=== PATIENT | female | born 1955 | race Caucasian/White ===

== ENCOUNTER 2016-11-12 08:50 | Inpatient (IN) | payer BC, OTHER ==
[2016-11-12] MEDS ORDERED: SODIUM CHLORIDE 1,000 ML IV ONE (09:14)
[2016-11-12] MEDS ORDERED: ONDANSETRON 4 MG/2 ML VIAL IVPB ONE (09:14)
--- NOTE | 2016-11-12 09:22 | PDOC ---
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 Pt states that she initially started to experience a productive cough with green sputum, which is dry now and gets worse on exertion. She reports experiencing multiple episodes of vomiting and watery diarrhea for 24 hours, but denies abdominal pain. She states that she is not able to keep any food down. She also reports subjective fever, chills, and SOB, but denies any chest pain. She denies any leg swelling and hemoptysis. No recent travel or known sick contacts. Flu shot (+) Sick contact (-) PSH:renal transplant 1989 and 2005 in [facility]" PCP: Dr. Brenda Lynch [phone] Transplant team: Dr. Estrada Tierney [phone] <Haley Olguin - Last Filed: 11/12/16 10:57> <Hernan Lerma - Last Filed: 11/12/16 11:22> - General Chief Complaint: Vomiting/Diarrhea Stated Complaint: DIARRHEA,VOMITING,LOW BP&OXYGEN SATURATION Time Seen by Provider: 11/12/16 09:12 Past History <Haley Olguin - Last Filed: 11/12/16 10:57> - Past Medical History Dialysis: Yes (NOT ANYMORE,RENAL TRANSPLANT-1989) Other medical history: AUTO IMMUNE DISEASE - Psycho/Social/Smoking Cessation Hx Suicidal Ideation: No Smoking History: Never smoked <Hernan Lerma - Last Filed: 11/12/16 11:22> - Past Medical History Allergies/Adverse Reactions: Allergies Allergy/AdvReac Type Severity Reaction Status Date / Time No Known Allergies Allergy Verified 11/12/16 08:54 Home Medications: Ambulatory Orders Allopurinol [Zyloprim -] 100 mg PO DAILY 11/12/16 Calcium Carbonate [Calcium] 500 mg PO BID 11/12/16 Pravastatin Sodium [Pravachol (Nf)] 40 mg PO HS 11/12/16 Prednisone 5 mg PO DAILY 11/12/16 Review of Systems - Review of Systems Able to Perform ROS?: Yes Comments:: 11/12/16 10:58 CONSTITUTIONAL: Yes: fever, chills No reported: Diaphoresis, Generalized Weakness, Malaise, Loss of Appetite HEENT: No reported: Rhinorrhea, Nasal Congestion, Throat Pain, Throat Swelling, Difficulty Swallowing, Mouth Swelling, Ear Pain, Eye Pain, Visual Changes CARDIOVASCULAR: No reported: Chest Pain, Syncope, Palpitations, Irregular Heart Rate, Lightheadedness, Peripheral Edema RESPIRATORY: Yes: cough, SOB No reported: Orthopnea, Wheezing, Stridor, Hemoptysis GASTROINTESTINAL: Yes: nausea, vomiting, diarrhea No reported: Abdominal pain, Abdominal Distension, Constipation, Melena, Hematochezia GENITOURINARY: No reported: Dysuria, Frequency, Urgency, Hesitancy, Flank Pain, Genital Pain MUSCULOSKELETAL: No reported: Myalgia, Arthralgia, Joint Swelling, Back pain, Neck Pain SKIN: No reported: Rash, Itching, Pallor HEMEATOLOGIC/IMMUNOLOGIC: No reported: Easy Bleeding, Easy Bruising, Lymphadenopathy, Frequent infections ENDOCRINE: No reported: Unexplained Weight Gain, Unexplained Weight Loss, Heat Intolerance , Cold Intolerance NEUROLOGIC: No reported: Headache, Focal Weakness, Paresthesias, Vertigo, Lightheadedness, Unsteady Gait, Seizure, Mental Status Changes, Incontinence PSYCHIATRIC: No reported: Anxiety, Depression All Other Systems: Reviewed and Negative <Haley Olguin - Last Filed: 11/12/16 10:57> *Physical Exam - Vital Signs Last Vital Signs Temp Pulse Resp BP Pulse Ox 97.4 F L 101 H 26 H 97/71 95 11/12/16 08:54 11/12/16 10:05 11/12/16 10:40 11/12/16 10:40 11/12/16 10:40 - Physical Exam Comments: 11/12/16 10:58 GENERAL: The patient is awake, alert, and fully oriented, Nontoxic - in no acute distress. HEAD: Normocephalic, atraumatic. EYES: extraocular movements intact, sclera anicteric, conjunctiva clear. ENT: +dry mucous membrane. Normal voice, NECK: Normal range of motion, supple LUNGS:+scant crackles at left base. Breath sounds equal, clear to auscultation bilaterally. No wheezes, no rhonchi, no rales. HEART: Regular rate and rhythm, without murmur, rub or gallop. ABDOMEN: Soft, nontender, normoactive bowel sounds. No guarding, no rebound.No CVA tenderness EXTREMITIES: Normal range of motion, no edema. No clubbing or cyanosis. No cords, erythema, or tenderness. NEUROLOGICAL: No facial assymetry, Normal speech, PSYCH: Normal mood, normal affect. SKIN: Warm, Dry, normal turgor, <Haley Olguin - Last Filed: 11/12/16 10:57> - Vital Signs Last Vital Signs Temp Pulse Resp BP Pulse Ox 97.4 F L 113 H 16 94/54 92 L 11/12/16 08:54 11/12/16 08:54 11/12/16 08:54 11/12/16 08:54 11/12/16 08:54 <Hernan Lerma - Last Filed: 11/12/16 11:22> Heart Score/ECG Review - ECG Impressions Comment:: 11/12/16 11:22 Twelve-lead EKG was performed and reviewed by me. There is normal sinus rhythm with a rate of 105 The axis is normal. The intervals are normal. There is normal R wave progression nonspecific ST wave changes Impression: sinus tachcyardia <Hernan Lerma - Last Filed: 11/12/16 11:22> ED Treatment Course - LABORATORY CBC & Chemistry Diagram: 11/12/16 09:30 11/12/16 09:30 - ADDITIONAL ORDERS Additional order review: Laboratory Results 11/12/16 11/12/16 09:30 09:30 Sodium 134 L Potassium 4.0 Chloride 98 Carbon Dioxide 19 L Anion Gap 17 H BUN 33 H Creatinine 2.7 H Creat Clearance w eGFR 17.86 Random Glucose 112 H Calcium 8.8 Magnesium 1.4 L Total Bilirubin 1.5 H AST 61 H ALT 72 Alkaline Phosphatase 96 Total Protein 6.9 Albumin 3.4 11/12/16 09:30 Influenza Types A,B Antigen (ALEX) - Final Nasopharyngeal Swab - Final 11/12/16 09:30 RBC 4.69 MCV 89.7 MCHC 32.7 RDW 14.8 MPV 8.6 Neutrophils % 91.9 H Lymphocytes % 5.9 L Monocytes % 2.1 L Eosinophils % 0.0 Basophils % 0.1 - Medications Given in the ED: ED Medications Discontinued Medications Generic Name Dose Route Start Last Admin Trade Name Ana Cristina PRN Reason Stop Dose Admin Sodium Chloride 1,000 mls @ 1,000 mls/hr 11/12/16 09:14 11/12/16 09:36 Normal Saline - IV 11/12/16 10:13 1,000 mls/hr .Q1H ONE Administration Ondansetron HCl 4 mg 11/12/16 09:14 11/12/16 09:47 Zofran Injection IVPB 11/12/16 09:15 Not Given ONCE ONE <Haley Olguin - Last Filed: 11/12/16 10:57> - LABORATORY CBC & Chemistry Diagram: 11/12/16 09:30 11/12/16 09:30 - RADIOLOGY Radiology Studies Ordered: Category Date Time Status CHEST X-RAY PORTABLE* [RAD] Stat Radiology 11/12/16 09:14 Ordered <Hernan Lerma - Last Filed: 11/12/16 11:22> Medical Decision Making - Medical Decision Making 11/12/16 09:40 61y 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 On exam pt apepars dry. her vitals noted for tachcyardia, mildly hypotensive, hypoxic to 92%, scant rales on L base. suspect hypotension secondary to dehydration will give fluids also consider possible adrenal crsis as pt has been on steroids (5mg prednisone daily, last dose 2 days ago) - will consider stress dose steroids if pt bp not responding to fluids pt also placed on 2l NC 11/12/16 10:42 The patients CXR suggestive of a LLL infiltrate/pna labs reviewed noted for leukocyotsis and left shift Cr elevated at 2.7 with BUN of 33 - will hydrate pts BP still on the low side - will give another L of NS, if persistently hypotensive will give her dose of steroids will admit for further management of gamaliel, pna, hypoxia 11/12/16 11:20 no significatn improvemnt of BP with 2L of NS. still borderline bp. will give dose of dexamethasone 4mg for possible adrenal crisis case dw CHASSIS INSPECTOR Luann, agreed with management will admit for further management stable for med/surg Case discussed in detail with admitting physician including history, physical exam and ancillary studies. Admitting physician has assumed care for the patient, will follow all pending diagnostics and will complete the evaluation and treatment. <Hernan Lerma - Last Filed: 11/12/16 11:22> *DC/Admit/Observation/Transfer - Attestations Scribe Attestion: 11/12/16 10:5 Documentation prepared by Haley Olguin, acting as medical billing manager for Hernan Lerma MD. <Haley Olguin - Last Filed: 11/12/16 10:57> - Discharge Dispostion Admit: Yes <Hernan Lerma - Last Filed: 11/12/16 11:22> Diagnosis at time of Disposition: GAMALIEL (acute kidney injury), Dehydration Pneumonia Qualifiers: Pneumonia type: due to unspecified organism Laterality: left Lung location: lower lobe of lung Qualified Code(s): J18.9 - Pneumonia, unspecified organism - Discharge Dispostion Condition at time of disposition: Guarded - Referrals Referrals: STAFF,NOT ON [Primary Care Provider] -
[2016-11-12 10:22] LABS: BASOPHIL 0.1 % (0-2.0); MCH 29.3 pg (25.7-33.7); MCHC 32.7 g/dl (32.0-36.0); MEAN CELL VOLUME 89.7 fl (80-96); MEAN PLT VOLUME 8.6 fl (7.5-11.1); NEUTROPHILS 91.9 % (42.8-82.8); PLATELET COUNT 99 K/MM3 (134-434); RDW 14.8 % (11.6-15.6); WHITE BLOOD COUNT 13.6 K/mm3 (4.0-10.0)
[2016-11-12 10:31] LABS: ALBUMIN 3.4 g/dl (3.4-5.0); BILIRUBIN,TOTAL 1.5 mg/dL (0.2-1.0); CALCIUM 8.8 mg/dL (8.5-10.1); CREATININE 2.7 mg/dL (0.55-1.02); TOT PROT 6.9 g/dl (6.4-8.2)
[2016-11-12] MEDS ORDERED: AZITHROMYCIN IVPB 500 MG in DEXTROSE 5%-WATER - 250 ML IVPB ONE (10:32)
[2016-11-12] MEDS ORDERED: CEFTRIAXONE 1 GM in DEXTROSE 5%-WATER - 100 ML IVPB ONE (10:33)
[2016-11-12] MEDS ORDERED: SODIUM CHLORIDE 500 ML IV STA ×2 (10:51→12:05)
--- NOTE | 2016-11-12 11:03 | HP ---
CHIEF COMPLAINT: Cough PCP: Dr. Brenda Lynch [phone] Transplant: Estrada Tierney [phone] HISTORY OF PRESENT ILLNESS: This is a 61 year old female with a history of Gregoria's granulomatosis s/p renal transplant 1989 and 2005 at [place] who presents to the ED today complaining of four days of cough productive of green sputum followed by two days of numerous episodes of black diarrhea and one episode of vomiting. She reports chills two days ago but did not check her temperature. She has been unable to take her medications for two days because of nausea. She has not been able to take food or fluids either. 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 [place] Smoking: None Alcohol: Occasional Allergies No Known Allergies Allergy (Verified 11/12/16 08:54) HOME MEDICATIONS: Home Medications Medication Instructions Recorded Allopurinol [Zyloprim -] 100 mg PO DAILY 11/12/16 Calcium Carbonate [Calcium] 500 mg PO BID 11/12/16 Pravastatin Sodium [Pravachol (Nf)] 40 mg PO HS 11/12/16 Prednisone 5 mg PO DAILY 11/12/16 REVIEW OF SYSTEMS CONSTITUTIONAL: Chills, generalized weakness HEENT: Absent: rhinorrhea, nasal congestion, throat pain, throat swelling, difficulty swallowing, mouth swelling, ear pain, eye pain, visual changes CARDIOVASCULAR: Dizziness when standing Absent: chest pain, syncope, palpitations, irregular heart rate, peripheral edema RESPIRATORY: Cough productive of green sputum, shortness of breath (resolved) GASTROINTESTINAL: Nausea, vomiting x 1, continuous "black" diarrhea Absent: abdominal pain, abdominal distension, nausea, vomiting, diarrhea, constipation, melena, hematochezia GENITOURINARY: Absent: dysuria, frequency, urgency, hesitancy, hematuria, flank pain, genital pain MUSCULOSKELETAL: Absent: myalgia, arthralgia, joint swelling, back pain, neck pain SKIN: Absent: rash, itching, pallor HEMATOLOGIC/IMMUNOLOGIC: Absent: easy bleeding, easy bruising, lymphadenopathy, frequent infections ENDOCRINE: Absent: unexplained weight gain, unexplained weight loss, heat intolerance, cold intolerance NEUROLOGIC: Absent: headache, focal weakness or paresthesias, dizziness, unsteady gait, seizure, mental status changes, bladder or bowel incontinence PSYCHIATRIC: Absent: anxiety, depression, suicidal or homicidal ideation, hallucinations. PHYSICAL EXAMINATION Vital Signs - 24 hr 11/12/16 11/12/16 11/12/16 08:54 09:41 10:05 Temperature 97.4 F L Pulse Rate 113 H Pulse Rate [ 103 H 101 H Apical] Respiratory 16 24 24 Rate Blood Pressure 94/54 Blood Pressure 86/65 85/65 [Left Arm] O2 Sat by Pulse 92 L 93 L 94 L Oximetry (%) 11/12/16 10:40 Temperature Pulse Rate Pulse Rate [ Apical] Respiratory 26 H Rate Blood Pressure Blood Pressure 97/71 [Left Arm] O2 Sat by Pulse 95 Oximetry (%) GENERAL: Awake, alert, and fully oriented. Appears weak. HEAD: Normal with no signs of trauma. EYES: Pupils equal, round and reactive to light, extraocular movements intact, sclera anicteric, conjunctiva clear. No lid lag. Mucous membranes very dry. EARS, NOSE, THROAT: Ears normal, nares patent, oropharynx clear without exudates. Moist mucous membranes. NECK: Normal range of motion, supple without lymphadenopathy, JVD, or masses. LUNGS:Diminished left base. No wheezes or crackles. No accessory muscle use. HEART: Regular rate and rhythm, normal S1 and S2 without murmur, rub or gallop. ABDOMEN: Soft, nontender, not distended, normoactive bowel sounds, no guarding, no rebound, no masses. No hepatomegaly or splenomegaly. MUSCULOSKELETAL: Normal range of motion at all joints. No bony deformities or tenderness. No CVA tenderness. UPPER EXTREMITIES: 2+ pulses, warm, well-perfused. No cyanosis. No clubbing. Cap refill <2 seconds. No peripheral edema. LOWER EXTREMITIES: 2+ pulses, warm, well-perfused. No calf tenderness. No peripheral edema. NEUROLOGICAL: Cranial nerves II-XII intact. Normal speech. PSYCHIATRIC: Cooperative. Good eye contact. Appropriate mood and affect. SKIN: Warm, very dry, no rashes or lesions noted. Laboratory Results - last 24 hr 11/12/16 11/12/16 11/12/16 09:30 09:30 09:30 WBC 13.6 H RBC 4.69 Hgb 13.7 Hct 42.1 MCV 89.7 MCHC 32.7 RDW 14.8 Plt Count 99 L MPV 8.6 Neutrophils % 91.9 H Lymphocytes % 5.9 L Monocytes % 2.1 L Eosinophils % 0.0 Basophils % 0.1 Sodium 134 L Potassium 4.0 Chloride 98 Carbon Dioxide 19 L Anion Gap 17 H BUN 33 H Creatinine 2.7 H Creat Clearance w eGFR 17.86 Random Glucose 112 H Calcium 8.8 Magnesium 1.4 L Total Bilirubin 1.5 H AST 61 H ALT 72 Alkaline Phosphatase 96 Total Protein 6.9 Albumin 3.4 ASSESSMENT/PLAN: 61 year old renal transplant patient with JAMILA in the setting of pneumonia/sepsis and diarrhea/hypovolemia. Problem List - Problem (1) JAMILA (acute kidney injury) Assessment/Plan: -Patient states her baseline creatinine is 1.3 -Suspect hypovolemia secondary to diarrhea as well as some component of sepsis -Received 3L NS in ED, will continue at 100 mLs/hr; low bicarb noted- need to monitor for worsening acidosis with large volumes of saline, however cannot receive LR with Ceftriaxone -Attempted to reach housekeeping coordinator at number listed in ED not and different number found on [employer]; so far no response -Nephrology evaluation requested Code(s): N17.9 - ACUTE KIDNEY FAILURE, UNSPECIFIED (2) Dehydration Assessment/Plan: -Hydration as above Code(s): E86.0 - DEHYDRATION (3) Pneumonia Assessment/Plan: -Community-acquired -Continue Ceftriaxone/Azithromycin -Follow up urine antigens and blood cultures -Repeat lactic acid now -Tylenol as needed for fever Code(s): J18.9 - PNEUMONIA, UNSPECIFIED ORGANISM Qualifiers: Pneumonia type: due to unspecified organism Laterality: left Lung location: lower lobe of lung Qualified Code(s): J18.9 - Pneumonia, unspecified organism (4) Diarrhea Assessment/Plan: -No recent hospitalizations or antibiotic use -Send stool for occult blood, c diff, and stool culture -Hydration as above Code(s): R19.7 - DIARRHEA, UNSPECIFIED (5) Hypomagnesemia Assessment/Plan: -Mg 1.4; received 2g IVPB in ED -Replete with additional 2g now -Follow Code(s): E83.42 - HYPOMAGNESEMIA (6) Renal transplant recipient Assessment/Plan: -Continue mycophenolate/tacrolimus and prednisone -Received dexamethasone 4mg IVP in ED out of concern for adrenal crisis Code(s): Z94.0 - KIDNEY TRANSPLANT STATUS (7) DVT prophylaxis Assessment/Plan: -Heparin sq 5000 units tid -Early ambulation Code(s): [id number] - Visit type - Emergency Visit Emergency Visit: Yes ED Registration Date: 11/12/16 Care time: The patient presented to the Emergency Department on the above date and was hospitalized for further evaluation of their emergent condition. - New Patient This patient is new to me today: Yes Date on this admission: 11/12/16 - Critical Care Critical Care patient: No
[2016-11-12] MEDS ORDERED: CEFTRIAXONE 50 ML ONE (11:13)
[2016-11-12] MEDS ORDERED: AZITHROMYCIN IVPB 250 ML IVPB ONE (11:13)
[2016-11-12] MEDS ORDERED: DEXAMETHASONE SOD PHOSPHATE 4 MG/1 ML VIAL IVPUSH ONE (11:17)
[2016-11-12] MEDS ORDERED: DEXAMETHASONE SOD PHOSPHATE 4 MG/1 ML VIAL ONE (11:32)
[2016-11-12] MEDS ORDERED: MAGNESIUM SULF 50% (8.12 MEQ/2 ML-1 GM VIAL) IVPB ONE ×2 (11:47→17:30)
[2016-11-12] MEDS ORDERED: MAGNESIUM SULF 50% (8.12 MEQ/2 ML-1 GM VIAL) ONE (11:53)
[2016-11-12] MEDS ORDERED: ONDANSETRON 4 MG/2 ML VIAL IVPB PRN (12:21)
[2016-11-12] MEDS ORDERED: LACTATED RINGERS SOLUTION 1,000 ML IV SCH (12:30)
[2016-11-12 12:41] VITALS: BMI 22.2
[2016-11-12 12:50] LABS: URINE APPEARANCE SLCLOUDY; URINE BILIRUBIN NEGATIVE (NEGATIVE); URINE BLOOD NEGATIVE (NEGATIVE); URINE COLOR AMBER; URINE GLUCOSE (UA) NEGATIVE (NEGATIVE); URINE KETONE NEGATIVE (NEGATIVE); URINE LEUK ESTERASE NEGATIVE (NEGATIVE); URINE NITRITE NEGATIVE (NEGATIVE); URINE UROBILINOGEN NEGATIVE E.U./dl (0.2-1.0)
[2016-11-12 13:10] LABS: URINE PROTEIN 1+ (NEGATIVE)
[2016-11-12 13:11] LABS: URINE BACTERIA RARE /hpf (NONE SEEN); URINE HYALINE CAST 14 /lpf; URINE MUCUS RARE; URINE RBC <1 /hpf (0-3); URINE WBC 4 /hpf (3-5)
[2016-11-12] MEDS: SODIUM CHLORIDE 1,000 ML IV SCH ×2 (14:42→21:30)
[2016-11-12] MEDS: HEPARIN NA (PORCINE) 5,000 UNITS/ML 1ML VIAL SQ SCH ×2 (14:42→22:01)
[2016-11-12] MEDS: ACETAMINOPHEN 325 MG TABLET (FP) PO PRN ×2 (16:46→22:12)
--- NOTE | 2016-11-12 17:36 | CONSULT ---
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 She complains of a productive cough. She also had several days of diarrhea and vomiting. She was found to have a PNA on cxr. I was called to evaluate her for CKD and JAMILA. She developed renal failure in the late s. She was on PD briefly then on HD for about 5 months. Her father donated a kidney in 1989. She had that kidney until about 2005 where she went into failure. At that time she was given a second kidney from a friend. She was not on dialysis between the kidney transplants. She says she has a baseline creatinine of about 1.3. She is on prograf, mycophenylate and prednisone. She feels better today after recieving fluids. She was found to be in acute renal failure in the hospital. - History Source History Provided By: Patient - Past Medical History Cardio/Vascular: Yes: Hyperlipdemia Pulmonary: Yes: Other (wegners) Renal/: Yes: Renal Inusuff, Other (kidney transplant) ...: No Rheumatology: Yes: Gout - Past Surgical History Past Surgical History: Yes: Kidney Transplant - Alcohol/Substance Use Hx Alcohol Use: No - Smoking History Smoking history: Never smoked Home Medications - Allergies Allergies/Adverse Reactions: Allergies Allergy/AdvReac Type Severity Reaction Status Date / Time No Known Allergies Allergy Verified 11/12/16 08:54 - Home Medications Home Medications: Ambulatory Orders Allopurinol [Zyloprim -] 100 mg PO DAILY 11/12/16 Calcium Carbonate [Calcium] 500 mg PO BID 11/12/16 Mycophenolate Mofetil [Cellcept Suspension -] 100 mg PO HS 11/12/16 Mycophenolate Mofetil [Cellcept] 200 mg PO DAILY 11/12/16 Pravastatin Sodium [Pravachol (Nf)] 40 mg PO HS 11/12/16 Prednisone 5 mg PO DAILY 11/12/16 Tacrolimus 1 mg PO DAILY 11/12/16 Tacrolimus 2 mg PO HS 11/12/16 Family Disease History - Family Disease History Family History: Denies Review of Systems - Review of Systems Constitutional: reports: Chills, Fever Eyes: reports: No Symptoms HENT: reports: No Symptoms Neck: reports: No Symptoms Cardiovascular: reports: Shortness of Breath. denies: Edema Respiratory: reports: Cough, SOB on Exertion Gastrointestinal: reports: Diarrhea Genitourinary: reports: No Symptoms Musculoskeletal: reports: No Symptoms Integumentary: reports: No Symptoms Neurological: reports: No Symptoms Endocrine: reports: No Symptoms Hematology/Lymphatic: reports: No Symptoms Psychiatric: reports: No Symptoms Physical Exam Vital Signs: Vital Signs Temperature 98.9 F 11/12/16 13:05 Pulse Rate 86 11/12/16 13:05 Respiratory Rate 22 11/12/16 13:05 Blood Pressure 96/64 11/12/16 13:05 O2 Sat by Pulse Oximetry (%) 95 11/12/16 12:30 Constitutional: Yes: Calm Eyes: Yes: Conjunctiva Clear HENT: Yes: Atraumatic Neck: Yes: Supple Cardiovascular: Yes: S1, S2 Respiratory: Yes: On Nasal O2, Rhonchi, SOB on Exertion Gastrointestinal: Yes: Normal Bowel Sounds, Soft Renal/: Yes: Other (right lower quad graft soft and non tender, neg bruit) Musculoskeletal: Yes: WNL Extremities: Yes: WNL Edema: No Neurological: Yes: Oriented Psychiatric: Yes: Oriented Labs: Laboratory Tests 11/12/16 11/12/16 11/12/16 09:30 09:30 09:30 WBC 13.6 H Hgb 13.7 Plt Count 99 L Sodium 134 L Potassium 4.0 Chloride 98 Carbon Dioxide 19 L Anion Gap 17 H BUN 33 H Creatinine 2.7 H Creat Clearance w eGFR 17.86 Random Glucose 112 H Lactic Acid Magnesium 1.4 L Total Bilirubin 1.5 H AST 61 H ALT 72 Alkaline Phosphatase 96 Total Protein 6.9 Albumin 3.4 Urine Color Urine Appearance Urine pH Ur Specific [place] Urine Protein Urine Glucose (UA) Urine Ketones Urine Blood Urine Nitrite Urine Bilirubin Urine Urobilinogen Ur Leukocyte Esterase Urine RBC Urine WBC Stool Occult Blood 11/12/16 11/12/16 11/12/16 09:37 10:49 13:10 WBC Hgb Plt Count Sodium Potassium Chloride Carbon Dioxide Anion Gap BUN Creatinine Creat Clearance w eGFR Random Glucose Lactic Acid 2.152 H* 2.041 H* Magnesium Total Bilirubin AST ALT Alkaline Phosphatase Total Protein Albumin Urine Color [place] Urine Appearance Slcloudy Urine pH 5.0 Ur Specific [place] 1.023 Urine Protein 1+ H Urine Glucose (UA) Negative Urine Ketones Negative Urine Blood Negative Urine Nitrite Negative Urine Bilirubin Negative Urine Urobilinogen Negative Ur Leukocyte Esterase Negative Urine RBC <1 Urine WBC 4 Stool Occult Blood 11/12/16 16:15 WBC Hgb Plt Count Sodium Potassium Chloride Carbon Dioxide Anion Gap BUN Creatinine Creat Clearance w eGFR Random Glucose Lactic Acid Magnesium Total Bilirubin AST ALT Alkaline Phosphatase Total Protein Albumin Urine Color Urine Appearance Urine pH Ur Specific [place] Urine Protein Urine Glucose (UA) Urine Ketones Urine Blood Urine Nitrite Urine Bilirubin Urine Urobilinogen Ur Leukocyte Esterase Urine RBC Urine WBC Stool Occult Blood Negative Imaging - Results Chest X-ray: Report Reviewed (left lower lobe PNA with effusion) Problem List - Problems (1) JAMILA (acute kidney injury) Code(s): N17.9 - ACUTE KIDNEY FAILURE, UNSPECIFIED (2) Dehydration Code(s): E86.0 - DEHYDRATION (3) Diarrhea Code(s): R19.7 - DIARRHEA, UNSPECIFIED (4) Hypomagnesemia Code(s): E83.42 - HYPOMAGNESEMIA (5) Pneumonia Code(s): J18.9 - PNEUMONIA, UNSPECIFIED ORGANISM Qualifiers: Pneumonia type: due to unspecified organism Laterality: left Lung location: lower lobe of lung Qualified Code(s): J18.9 - Pneumonia, unspecified organism (6) Renal transplant recipient Code(s): Z94.0 - KIDNEY TRANSPLANT STATUS (7) Gregoria's granulomatosis with renal involvement Code(s): M31.31 - GREGORIA'S GRANULOMATOSIS WITH RENAL INVOLVEMENT (8) Sepsis Code(s): A41.9 - SEPSIS, UNSPECIFIED ORGANISM Assessment/Plan Current Medications Generic Name Dose Route Start Last Admin Trade Name Freq PRN Reason Stop Dose Admin Acetaminophen 650 mg 11/12/16 12:21 11/12/16 16:46 Tylenol - PO 650 mg Q4H PRN Administration FEVER OR PAIN Allopurinol 100 mg 11/13/16 10:00 Zyloprim - PO DAILY ADRIANNA Atorvastatin Calcium 10 mg 11/12/16 22:00 Lipitor - PO HS ADRIANNA Calcium Carbonate 500 mg 11/12/16 22:00 Os-Jalen 500mg - PO BID ADRIANNA Heparin Sodium (Porcine) 5,000 unit 11/12/16 14:00 11/12/16 14:42 Heparin - SQ 5,000 unit TID ADRIANNA Administration Azithromycin 250 mg/ Dextrose 250 mls @ 250 mls/hr 11/13/16 10:00 IVPB DAILY ADRIANNA Ceftriaxone Sodium 50 mls @ 100 mls/hr 11/13/16 10:00 Rocephin 1gm Ivpb (Pre-Docked) IVPB DAILY ADRIANNA Sodium Chloride 1,000 mls @ 100 mls/hr 11/12/16 13:15 11/12/16 14:42 Normal Saline - IV 100 mls/hr ASDIR ADRIANNA Administration Mycophenolate Mofetil 500 mg 11/12/16 22:00 Cellcept - PO HS ADRIANNA Mycophenolate Mofetil 1,000 mg 11/13/16 10:00 Cellcept - PO DAILY ADRIANNA Non-Formulary Medication 2 mg 11/12/16 22:00 Tacrolimus [Tacrolimus] PO HS ADRIANNA Non-Formulary Medication 1 mg 11/13/16 10:00 Tacrolimus [Tacrolimus] PO DAILY ADRIANNA Ondansetron HCl 4 mg 11/12/16 12:21 Zofran Injection IVPB Q6H PRN NAUSEA Prednisone 5 mg 11/13/16 10:00 Deltasone - PO DAILY ADRIANNA Impression 1. CKD 2. s/p kidney transplant x2 3. hx of vasculitis 4. PNA 5. diarrhea/vomiting 6. sepsis 7. gout 8. hyperlipidemia Plan - agree with hydration - repeat bmp to evaluate for responce - renal transplant ultrasound - will check urine lytes - resume prograf and mycophenylate, pt will take own meds, nurse to dispence - check prograf level - agree with starting antibiotics - recommend ID evaluation - blood pressure and pulse are improving - will follow Dr Negrete
[2016-11-12 20:12] LABS: CALCIUM 8.1 mg/dL (8.5-10.1)
--- NOTE | 2016-11-12 20:49 | PN ---
Progress Note (short form) - Note Progress Note: Renal Follow Up Laboratory Tests 11/12/16 19:10 Sodium 136 Potassium 3.6 Chloride 106 Carbon Dioxide 17 L Anion Gap 13 BUN 31 H Creatinine 2.0 H D - Pts repeat labs reviewed and her renal function is improving. Will continue to monitor. - cont with hydration - repeat labs in am Dr Negrete Problem List - Problems (1) JAMILA (acute kidney injury) Code(s): N17.9 - ACUTE KIDNEY FAILURE, UNSPECIFIED (2) Dehydration Code(s): E86.0 - DEHYDRATION (3) Diarrhea Code(s): R19.7 - DIARRHEA, UNSPECIFIED (4) Hypomagnesemia Code(s): E83.42 - HYPOMAGNESEMIA (5) Pneumonia Code(s): J18.9 - PNEUMONIA, UNSPECIFIED ORGANISM Qualifiers: Pneumonia type: due to unspecified organism Laterality: left Lung location: lower lobe of lung Qualified Code(s): J18.9 - Pneumonia, unspecified organism (6) Renal transplant recipient Code(s): Z94.0 - KIDNEY TRANSPLANT STATUS (7) Gregoria's granulomatosis with renal involvement Code(s): M31.31 - GREGORIA'S GRANULOMATOSIS WITH RENAL INVOLVEMENT (8) Sepsis Code(s): A41.9 - SEPSIS, UNSPECIFIED ORGANISM
[2016-11-12] MEDS: CALCIUM (OYSTER SHELL) 500 MG TABLET (FP) PO SCH (22:00)
[2016-11-12] MEDS ORDERED: MYCOPHENOLATE MOFETIL 200 MG/ML PO SCH (22:00)
[2016-11-12] MEDS ORDERED: ATORVASTATIN CA 10 MG TABLET (FP) PO SCH (22:00)
[2016-11-12] MEDS: TACROLIMUS 2 MG PO SCH (22:01)
[2016-11-12] MEDS: PRAVASTATIN NA 40 MG TABLET PO SCH (22:01)
[2016-11-12] MEDS: MYCOPHENOLATE MOFETIL 500 MG TABLET PO SCH (22:02)
[2016-11-12 22:18] LABS: CREATININE 1.8 mg/dL (0.55-1.02); MAGNESIUM 3.2 mg/dL (1.8-2.4)
[2016-11-12] MEDS ORDERED: SODIUM CHLORIDE 250 ML IV STA (23:22)
[2016-11-13 00:08] LABS: SODIUM,RANDOM URINE 28 MMOL/L
[2016-11-13 00:09] LABS: CHLORIDE,RANDOM URINE < 10 MMOL/L
[2016-11-13] MEDS: SODIUM CHLORIDE 1,000 ML IV SCH ×3 (06:36→19:11)
[2016-11-13] MEDS: HEPARIN NA (PORCINE) 5,000 UNITS/ML 1ML VIAL SQ SCH ×3 (06:36→22:06)
[2016-11-13 08:10] LABS: MCH 29.2 pg (25.7-33.7); MCHC 32.7 g/dl (32.0-36.0); MEAN CELL VOLUME 89.2 fl (80-96); MEAN PLT VOLUME 9.1 fl (7.5-11.1); NEUTROPHILS 92.6 % (42.8-82.8); PLATELET COUNT 99 K/MM3 (134-434); RDW 14.8 % (11.6-15.6); WHITE BLOOD COUNT 13.3 K/mm3 (4.0-10.0)
[2016-11-13 09:29] LABS: ALBUMIN 2.6 g/dl (3.4-5.0); BILIRUBIN,TOTAL 0.5 mg/dL (0.2-1.0); CALCIUM 8.1 mg/dL (8.5-10.1); CREATININE 1.5 mg/dL (0.55-1.02); MAGNESIUM 2.8 mg/dL (1.8-2.4); TOT PROT 5.8 g/dl (6.4-8.2)
--- NOTE | 2016-11-13 09:53 | PN ---
Physical Exam: SUBJECTIVE: Patient seen and examined oob to chair. OBJECTIVE: Vital Signs Period Temp Pulse Resp BP Sys/Gale Pulse Ox Last 24 Hr 97.8 F-99.1 F 84-94 20-22 89-136/61-94 95-96 GENERAL: The patient is awake, alert, and fully oriented, in no acute distress. HEAD: Normal with no signs of trauma. EYES: PERRL, extraocular movements intact, sclera anicteric, conjunctiva clear. No ptosis. LUNGS: Poor air movement. HEART: Regular rate and rhythm, S1, S2 without murmur, rub or gallop. ABDOMEN: Soft, nontender, nondistended, normoactive bowel sounds, no guarding, no rebound, no hepatosplenomegaly, no masses. EXTREMITIES: 2+ pulses, warm, well-perfused, no edema. NEUROLOGICAL: Cranial nerves II through XII grossly intact. Normal speech, gait not observed. PSYCH: Normal mood, normal affect. SKIN: Warm, dry, normal turgor, no rashes or lesions noted Laboratory Results - last 24 hr 11/12/16 11/12/16 11/12/16 13:10 16:15 19:10 WBC RBC Hgb Hct MCV MCHC RDW Plt Count MPV Neutrophils % Lymphocytes % Monocytes % Eosinophils % Basophils % Sodium 136 Potassium 3.6 Chloride 106 Carbon Dioxide 17 L Anion Gap 13 BUN 31 H Creatinine 2.0 H D Creat Clearance w eGFR Random Glucose 221 H D Lactic Acid 2.041 H* Calcium 8.1 L Magnesium Total Bilirubin AST ALT Alkaline Phosphatase C-Reactive Protein Total Protein Albumin Ur Random Sodium Ur Random Potassium Ur Random Chloride Urine Creatinine Stool Occult Blood Negative 11/12/16 11/12/16 11/12/16 21:00 21:00 22:45 WBC RBC Hgb Hct MCV MCHC RDW Plt Count MPV Neutrophils % Lymphocytes % Monocytes % Eosinophils % Basophils % Sodium 139 Potassium 3.6 Chloride 107 Carbon Dioxide 19 L Anion Gap 13 BUN 29 H Creatinine 1.8 H Creat Clearance w eGFR Random Glucose 186 H Lactic Acid 2.507 H* Calcium 8.0 L Magnesium 3.2 H D Total Bilirubin AST ALT Alkaline Phosphatase C-Reactive Protein Total Protein Albumin Ur Random Sodium 28 Ur Random Potassium 17.9 Ur Random Chloride < 10 Urine Creatinine Stool Occult Blood 11/12/16 11/13/16 11/13/16 22:45 07:00 07:00 WBC 13.3 H RBC 3.92 Hgb 11.4 D Hct 35.0 D MCV 89.2 MCHC 32.7 RDW 14.8 Plt Count 99 L MPV 9.1 Neutrophils % 92.6 H Lymphocytes % 4.2 L D Monocytes % 3.2 L Eosinophils % 0.0 Basophils % 0.0 Sodium 141 Potassium 3.5 Chloride 108 H Carbon Dioxide 18 L Anion Gap 15 BUN 28 H Creatinine 1.5 H Creat Clearance w eGFR 35.19 Random Glucose 124 H D Lactic Acid Calcium 8.1 L Magnesium 2.8 H Total Bilirubin 0.5 D AST 30 D ALT 43 D Alkaline Phosphatase 82 C-Reactive Protein Total Protein 5.8 L Albumin 2.6 L D Ur Random Sodium Ur Random Potassium Ur Random Chloride Urine Creatinine 63.6 Stool Occult Blood 11/13/16 11/13/16 07:00 07:00 WBC RBC Hgb Hct MCV MCHC RDW Plt Count MPV Neutrophils % Lymphocytes % Monocytes % Eosinophils % Basophils % Sodium Potassium Chloride Carbon Dioxide Anion Gap BUN Creatinine Creat Clearance w eGFR Random Glucose Lactic Acid 1.921 Calcium Magnesium Total Bilirubin AST ALT Alkaline Phosphatase C-Reactive Protein 39.5 H Total Protein Albumin Ur Random Sodium Ur Random Potassium Ur Random Chloride Urine Creatinine Stool Occult Blood Active Medications Generic Name Dose Route Start Last Admin Trade Name Freq PRN Reason Stop Dose Admin Acetaminophen 650 mg 11/12/16 12:21 11/12/16 22:12 Tylenol - PO 650 mg Q4H PRN Administration FEVER OR PAIN Allopurinol 100 mg 11/13/16 10:00 Zyloprim - PO DAILY ADRIANNA Calcium Carbonate 500 mg 11/12/16 22:00 11/12/16 22:00 Os-Jalen 500mg - PO 500 mg BID ADRIANNA Administration Heparin Sodium (Porcine) 5,000 unit 11/12/16 14:00 11/13/16 06:36 Heparin - SQ 5,000 unit TID ADRIANNA Administration Azithromycin 250 mg/ Dextrose 250 mls @ 250 mls/hr 11/13/16 10:00 IVPB DAILY ADRIANNA Ceftriaxone Sodium 50 mls @ 100 mls/hr 11/13/16 10:00 Rocephin 1gm Ivpb (Pre-Docked) IVPB DAILY AD[facility]ANNA Sodium Chloride 1,000 mls @ 100 mls/hr 11/12/16 13:15 11/13/16 06:36 Normal Saline - IV 100 mls/hr ASDIR ADRIANNA Administration Mycophenolate Mofetil 500 mg 11/12/16 22:00 11/12/16 22:02 Cellcept - PO 500 mg HS ADRIANNA Administration Mycophenolate Mofetil 1,000 mg 11/13/16 10:00 Cellcept - PO DAILY ADRIANNA Non-Formulary Medication 2 mg 11/12/16 22:00 11/12/16 22:01 Tacrolimus [Tacrolimus] PO 2 mg HS ADRIANNA Administration Non-Formulary Medication 1 mg 11/13/16 10:00 Tacrolimus [Tacrolimus] PO DAILY ADRIANNA Ondansetron HCl 4 mg 11/12/16 12:21 Zofran Injection IVPB Q6H PRN NAUSEA Pravastatin Sodium 40 mg 11/12/16 22:00 11/12/16 22:01 Pravachol PO 40 mg HS ADRIANNA Administration Prednisone 5 mg 11/13/16 10:00 Deltasone - PO DAILY ADRIANNA Microbiology 11/12/16 22:45 Urine For Antigen Detection Legionella Antigen - Final - Negative 11/12/16 22:45 Urine For Antigen Detection Streptococcus pneumoniae Antigen (M - Final) - Negative 11/12/16 09:30 Nasopharyngeal Swab Influenza Types A,B Antigen (ALEX) - Final - Negative 11/12/16 09:30 Nasopharyngeal Swab - Final ASSESSMENT/PLAN 61 year-old woman with a PMH of Gregoria's granulomatosis s/p renal transplant x 2 (1989, 2005 at [place]). Admitted for JAMILA and pneumonia. 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 Full Code. Visit type - Emergency Visit Emergency Visit: Yes ED Registration Date: 11/12/16 Care time: The patient presented to the Emergency Department on the above date and was hospitalized for further evaluation of their emergent condition. - New Patient This patient is new to me today: Yes Date on this admission: 11/16/16 - Critical Care Critical Care patient: No
[2016-11-13] MEDS ORDERED: CEFTRIAXONE 50 ML IVPB SCH (10:00)
[2016-11-13] MEDS ORDERED: MYCOPHENOLATE MOFETIL 200 MG/ML PO SCH (10:00)
[2016-11-13] MEDS: predniSONE 5 MG TABLET (UD) PO SCH (10:27)
[2016-11-13] MEDS: ALLOPURINOL 100 MG TABLET (FP) PO SCH (10:27)
[2016-11-13] MEDS: CALCIUM (OYSTER SHELL) 500 MG TABLET (FP) PO SCH ×2 (10:27→22:06)
[2016-11-13] MEDS: AZITHROMYCIN IVPB 250 MG in DEXTROSE 5%-WATER - 250 ML IVPB SCH (10:28)
[2016-11-13] MEDS: TACROLIMUS 1 MG PO SCH (10:32)
[2016-11-13] MEDS: MYCOPHENOLATE MOFETIL 500 MG TABLET PO SCH ×2 (10:33→22:06)
[2016-11-13] MEDS: ACETAMINOPHEN 325 MG TABLET (FP) PO PRN ×2 (10:45→22:06)
--- NOTE | 2016-11-13 17:38 | CONSULT ---
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 She complains of a productive cough. She also had several days of diarrhea and vomiting. She was found to have a PNA on cxr. patients history is pretty detailed this is her 2nd kidney transplant and she has been doing well ,the first one lasted a long time and now the second on also she is doing well As above patient presented with coung and left lower lobe pneumonia - History Source History Provided By: Patient Limitations to Obtaining History: No Limitations - Past Medical History Cardio/Vascular: Yes: Hyperlipdemia Pulmonary: Yes: Other (wegners) Renal/: Yes: Renal Inusuff, Other (kidney transplant) ...: No Rheumatology: Yes: Gout - Past Surgical History Past Surgical History: Yes: Kidney Transplant - Alcohol/Substance Use Hx Alcohol Use: No - Smoking History Smoking history: Never smoked Home Medications - Allergies Allergies/Adverse Reactions: Allergies Allergy/AdvReac Type Severity Reaction Status Date / Time No Known Allergies Allergy Verified 11/12/16 08:54 - Home Medications Home Medications: Ambulatory Orders Allopurinol [Zyloprim -] 100 mg PO DAILY 11/12/16 Calcium Carbonate [Calcium] 500 mg PO BID 11/12/16 Mycophenolate Mofetil [Cellcept Suspension -] 100 mg PO HS 11/12/16 Mycophenolate Mofetil [Cellcept] 200 mg PO DAILY 11/12/16 Pravastatin Sodium [Pravachol (Nf)] 40 mg PO HS 11/12/16 Prednisone 5 mg PO DAILY 11/12/16 Tacrolimus 1 mg PO DAILY 11/12/16 Tacrolimus 2 mg PO HS 11/12/16 Review of Systems - Review of Systems Constitutional: reports: Fever, Weakness Eyes: reports: No Symptoms HENT: reports: No Symptoms Neck: reports: No Symptoms Cardiovascular: reports: No Symptoms Respiratory: reports: Cough, SOB on Exertion Gastrointestinal: reports: Abdominal Pain, Diarrhea Genitourinary: reports: No Symptoms Musculoskeletal: reports: Muscle Weakness Integumentary: reports: No Symptoms Neurological: reports: No Symptoms Endocrine: reports: No Symptoms Hematology/Lymphatic: reports: No Symptoms Psychiatric: reports: No Symptoms Physical Exam Vital Signs: Vital Signs Temperature 98.1 F 11/13/16 13:11 Pulse Rate 82 11/13/16 13:11 Respiratory Rate 18 11/13/16 13:11 Blood Pressure 120/80 11/13/16 13:11 O2 Sat by Pulse Oximetry (%) 95 11/13/16 09:00 Constitutional: Yes: Well Nourished, Calm, Mild Distress Eyes: Yes: Conjunctiva Clear HENT: Yes: Atraumatic Neck: Yes: Supple, Trachea Midline Cardiovascular: Yes: Regular Rate and Rhythm Respiratory: Yes: Regular, Poor Air Entry, Rhonchi Gastrointestinal: Yes: Normal Bowel Sounds, Soft Musculoskeletal: Yes: WNL Extremities: Yes: WNL Neurological: Yes: Alert, Oriented Psychiatric: Yes: Alert Labs: CBC, BMP 11/13/16 07:00 11/13/16 07:00 Imaging - Results Chest X-ray: Report Reviewed, Image Reviewed Assessment/Plan this patient who is very immunocompromised with 2nd kidney transplant now getting admitted with pneumonia and dirrhoea with being very weak and very less urine output 61 year-old woman with a PMH of Gregoria's granulomatosis s/p renal transplant x 2 (1989, 2005 at [facility]). Admitted for JAMILA and pneumonia. Acute kidney injury Azotemia Lactic acidosis Renal transplant recipient Pneumonia Thrombocytopenia Diarrhea Gregoria's granulomatosis patient needs aggressive hydration and treatment to prevent her from going into renal failure i will also start abx she needs very broad coverage as anything on her cannot be missed because of her status plan will start patient on abx hydration close monitoring of the patient await for all the results close monitoring of urine output
[2016-11-13] MEDS ORDERED: CLINDAMYCIN 300 MG PREMIX IVPB 50 ML IVPB SCH (18:00)
--- NOTE | 2016-11-13 18:31 | PN ---
Progress Note, Physician History of Present Illness: Pt seen and examined at bedside. She is awake and alert. She feels that her breathing is improved. She started to feel better this afternoon. - Current Medication List Current Medications: Active Medications Acetaminophen (Tylenol -) 650 mg PO Q4H PRN PRN Reason: FEVER OR PAIN Last Admin: 11/13/16 10:45 Dose: 650 mg Allopurinol (Zyloprim -) 100 mg PO DAILY [facility] Last Admin: 11/13/16 10:27 Dose: 100 mg Calcium Carbonate (Os-Jalen 500mg -) 500 mg PO BID [facility] Last Admin: 11/13/16 10:27 Dose: 500 mg Heparin Sodium (Porcine) (Heparin -) 5,000 unit SQ TID [facility] Last Admin: 11/13/16 15:23 Dose: Not Given Azithromycin 250 mg/ Dextrose 250 mls @ 250 mls/hr IVPB DAILY [facility] Last Admin: 11/13/16 10:28 Dose: 250 mls/hr Sodium Chloride (Normal Saline -) 1,000 mls @ 100 mls/hr IV ASDIR [facility] Last Admin: 11/13/16 15:36 Dose: Not Given Clindamycin Phosphate (Cleocin 300 Mg Premix Ivpb) 50 mls @ 100 mls/hr IVPB Q8H -IV ADRIANNA Meropenem 1 gm/ Dextrose 250 mls @ 250 mls/hr IVPB BID ADRIANNA Mycophenolate Mofetil (Cellcept -) 500 mg PO HS [facility] Last Admin: 11/12/16 22:02 Dose: 500 mg Mycophenolate Mofetil (Cellcept -) 1,000 mg PO DAILY [facility] Last Admin: 11/13/16 10:33 Dose: 1,000 mg Non-Formulary Medication (Tacrolimus [Tacrolimus]) 2 mg PO HS [facility] Last Admin: 11/12/16 22:01 Dose: 2 mg Non-Formulary Medication (Tacrolimus [Tacrolimus]) 1 mg PO DAILY [facility] Last Admin: 11/13/16 10:32 Dose: 1 mg Ondansetron HCl (Zofran Injection) 4 mg IVPB Q6H PRN PRN Reason: NAUSEA Pravastatin Sodium (Pravachol) 40 mg PO HS [facility] Last Admin: 11/12/16 22:01 Dose: 40 mg Prednisone (Deltasone -) 5 mg PO DAILY [facility] Last Admin: 11/13/16 10:27 Dose: 5 mg - Objective Vital Signs: Vital Signs Temperature 98.1 F 11/13/16 13:11 Pulse Rate 82 11/13/16 13:11 Respiratory Rate 18 11/13/16 13:11 Blood Pressure 120/80 11/13/16 13:11 O2 Sat by Pulse Oximetry (%) 95 11/13/16 09:00 Constitutional: Yes: Calm Eyes: Yes: Conjunctiva Clear HENT: Yes: Atraumatic Neck: Yes: Supple Cardiovascular: Yes: S1, S2 Respiratory: Yes: Rhonchi Gastrointestinal: Yes: Soft Genitourinary: Yes: Other (graft is soft and not tender) Musculoskeletal: Yes: WNL Edema: No Neurological: Yes: Oriented Psychiatric: Yes: Oriented Labs: CBC, BMP 11/13/16 07:00 11/13/16 07:00 - ....Imaging Ultrasound: Report Reviewed Problem List - Problems (1) JAMILA (acute kidney injury) Code(s): N17.9 - ACUTE KIDNEY FAILURE, UNSPECIFIED (2) Dehydration Code(s): E86.0 - DEHYDRATION (3) Diarrhea Code(s): R19.7 - DIARRHEA, UNSPECIFIED (4) Hypomagnesemia Code(s): E83.42 - HYPOMAGNESEMIA (5) Pneumonia Code(s): J18.9 - PNEUMONIA, UNSPECIFIED ORGANISM Qualifiers: Pneumonia type: due to unspecified organism Laterality: left Lung location: lower lobe of lung Qualified Code(s): J18.9 - Pneumonia, unspecified organism (6) Renal transplant recipient Code(s): Z94.0 - KIDNEY TRANSPLANT STATUS (7) Gregoria's granulomatosis with renal involvement Code(s): M31.31 - GREGORIA'S GRANULOMATOSIS WITH RENAL INVOLVEMENT (8) Sepsis Code(s): A41.9 - SEPSIS, UNSPECIFIED ORGANISM Assessment/Plan Current Medications Generic Name Dose Route Start Last Admin Trade Name Freq PRN Reason Stop Dose Admin Acetaminophen 650 mg 11/12/16 12:21 11/13/16 10:45 Tylenol - PO 650 mg Q4H PRN Administration FEVER OR PAIN Allopurinol 100 mg 11/13/16 10:00 11/13/16 10:27 Zyloprim - PO 100 mg DAILY ADRIANNA Administration Calcium Carbonate 500 mg 11/12/16 22:00 11/13/16 10:27 Os-Jalen 500mg - PO 500 mg BID ADRIANNA Administration Heparin Sodium (Porcine) 5,000 unit 11/12/16 14:00 11/13/16 15:23 Heparin - SQ Not Given TID ADRIANNA Azithromycin 250 mg/ Dextrose 250 mls @ 250 mls/hr 11/13/16 10:00 11/13/16 10: 28 IVPB 250 mls/hr DAILY ADRIANNA Administration Sodium Chloride 1,000 mls @ 100 mls/hr 11/12/16 13:15 11/13/16 15:36 Normal Saline - IV Not Given ASDIR ADRIANNA Clindamycin Phosphate 50 mls @ 100 mls/hr 11/13/16 18:00 Cleocin 300 Mg Premix Ivpb IVPB Q8H-IV ADRIANNA Meropenem 1 gm/ Dextrose 250 mls @ 250 mls/hr 11/13/16 18:00 IVPB BID ADRIANNA Mycophenolate Mofetil 500 mg 11/12/16 22:00 11/12/16 22:02 Cellcept - PO 500 mg HS ADRIANNA Administration Mycophenolate Mofetil 1,000 mg 11/13/16 10:00 11/13/16 10:33 Cellcept - PO 1,000 mg DAILY ADRIANNA Administration Non-Formulary Medication 2 mg 11/12/16 22:00 11/12/16 22:01 Tacrolimus [Tacrolimus] PO 2 mg HS ADRIANNA Administration Non-Formulary Medication 1 mg 11/13/16 10:00 11/13/16 10:32 Tacrolimus [Tacrolimus] PO 1 mg DAILY ADRIANNA Administration Ondansetron HCl 4 mg 11/12/16 12:21 Zofran Injection IVPB Q6H PRN NAUSEA Pravastatin Sodium 40 mg 11/12/16 22:00 11/12/16 22:01 Pravachol PO 40 mg HS ADRIANNA Administration Prednisone 5 mg 11/13/16 10:00 11/13/16 10:27 Deltasone - PO 5 mg DAILY ADRIANNA Administration Impression 1. CKD 2. s/p kidney transplant x2 3. hx of vasculitis 4. PNA 5. diarrhea/vomiting 6. sepsis 7. gout 8. hyperlipidemia Plan - renal function is improving - magnesium improved - cont with fluids, can decrease rate - encourage PO intake - repeat labs in am - transplant ultrasound reviewed - check prograf level - follow up ID eval - will follow Dr Negrete
[2016-11-13] MEDS: TACROLIMUS 2 MG PO SCH (22:06)
[2016-11-13] MEDS: PRAVASTATIN NA 40 MG TABLET PO SCH (22:06)
[2016-11-13] MEDS: MEROPENEM 1 GM in DEXTROSE 5%-WATER - 250 ML IVPB SCH (22:07)
[2016-11-14] MEDS: MEROPENEM 1 GM in DEXTROSE 5%-WATER - 250 ML IVPB SCH ×3 (02:32→22:20)
[2016-11-14] MEDS: HEPARIN NA (PORCINE) 5,000 UNITS/ML 1ML VIAL SQ SCH ×3 (06:44→22:19)
[2016-11-14] MEDS: CLINDAMYCIN 300 MG PREMIX IVPB 50 ML IVPB SCH ×3 (06:44→22:19)
[2016-11-14] MEDS: SODIUM CHLORIDE 1,000 ML IV SCH (06:45)
[2016-11-14] MEDS ORDERED: CLINDAMYCIN 300 MG PREMIX IVPB 50 ML IVPB SCH (07:00)
[2016-11-14 08:21] LABS: BASOPHIL 0.1 % (0-2.0); EOSINOPHIL 0.1 % (0-4.5); MCH 29.3 pg (25.7-33.7); MCHC 32.9 g/dl (32.0-36.0); MEAN CELL VOLUME 89.1 fl (80-96); MEAN PLT VOLUME 9.1 fl (7.5-11.1); PLATELET COUNT 88 K/MM3 (134-434); WHITE BLOOD COUNT 9.3 K/mm3 (4.0-10.0)
[2016-11-14 08:32] LABS: CALCIUM 8.2 mg/dL (8.5-10.1); CREATININE 1.2 mg/dL (0.55-1.02)
[2016-11-14] MEDS: MYCOPHENOLATE MOFETIL 500 MG TABLET PO SCH ×2 (10:43→22:19)
[2016-11-14] MEDS: POTASSIUM CHLORIDE TABS 20 MEQ TABLET.ER (FP) PO SCH ×2 (10:44→17:54)
[2016-11-14] MEDS: CALCIUM (OYSTER SHELL) 500 MG TABLET (FP) PO SCH ×2 (10:44→22:20)
[2016-11-14] MEDS: predniSONE 5 MG TABLET (UD) PO SCH (10:44)
[2016-11-14] MEDS: ALLOPURINOL 100 MG TABLET (FP) PO SCH (10:44)
[2016-11-14] MEDS: AZITHROMYCIN IVPB 250 MG in DEXTROSE 5%-WATER - 250 ML IVPB SCH (10:45)
[2016-11-14] MEDS: TACROLIMUS 1 MG PO SCH (10:46)
[2016-11-14] MEDS: ACETAMINOPHEN 325 MG TABLET (FP) PO PRN ×2 (11:41→22:23)
--- NOTE | 2016-11-14 15:34 | PN ---
Progress Note, Physician History of Present Illness: Pt seen and examined at bedside. She is awake and alert. She feels better today. - Current Medication List Current Medications: Active Medications Acetaminophen (Tylenol -) 650 mg PO Q4H PRN PRN Reason: FEVER OR PAIN Last Admin: 11/14/16 11:41 Dose: 650 mg Allopurinol (Zyloprim -) 100 mg PO DAILY [facility] Last Admin: 11/14/16 10:44 Dose: 100 mg Calcium Carbonate (Os-Jalen 500mg -) 500 mg PO BID [facility] Last Admin: 11/14/16 10:44 Dose: 500 mg Heparin Sodium (Porcine) (Heparin -) 5,000 unit SQ TID [facility] Last Admin: 11/14/16 13:49 Dose: Not Given Azithromycin 250 mg/ Dextrose 250 mls @ 250 mls/hr IVPB DAILY [facility] Last Admin: 11/14/16 10:45 Dose: 250 mls/hr Meropenem 1 gm/ Dextrose 250 mls @ 250 mls/hr IVPB BID [facility] Last Admin: 11/14/16 10:47 Dose: 250 mls/hr Sodium Chloride (Normal Saline -) 1,000 mls @ 85 mls/hr IV ASDIR [facility] Last Admin: 11/14/16 06:45 Dose: 85 mls/hr Clindamycin Phosphate (Cleocin 300 Mg Premix Ivpb) 50 mls @ 100 mls/hr IVPB Q8H [facility] Last Admin: 11/14/16 13:50 Dose: 100 mls/hr Mycophenolate Mofetil (Cellcept -) 500 mg PO HS [facility] Last Admin: 11/13/16 22:06 Dose: 500 mg Mycophenolate Mofetil (Cellcept -) 1,000 mg PO DAILY [facility] Last Admin: 11/14/16 10:43 Dose: 1,000 mg Non-Formulary Medication (Tacrolimus [Tacrolimus]) 2 mg PO HS [facility] Last Admin: 11/13/16 22:06 Dose: 2 mg Non-Formulary Medication (Tacrolimus [Tacrolimus]) 1 mg PO DAILY [facility] Last Admin: 11/14/16 10:46 Dose: 1 mg Ondansetron HCl (Zofran Injection) 4 mg IVPB Q6H PRN PRN Reason: NAUSEA Potassium Chloride (K-Dur -) 40 meq PO Q6H [facility] Stop: 11/14/16 16:01 Last Admin: 11/14/16 10:44 Dose: 40 meq Pravastatin Sodium (Pravachol) 40 mg PO HS [facility] Last Admin: 11/13/16 22:06 Dose: 40 mg Prednisone (Deltasone -) 5 mg PO DAILY [facility] Last Admin: 11/14/16 10:44 Dose: 5 mg - Objective Vital Signs: Vital Signs Temperature 97.2 F L 11/14/16 06:00 Pulse Rate 85 11/14/16 06:00 Respiratory Rate 20 11/14/16 06:00 Blood Pressure 144/97 11/14/16 06:00 O2 Sat by Pulse Oximetry (%) 95 11/13/16 21:00 Constitutional: Yes: Calm Eyes: Yes: Conjunctiva Clear HENT: Yes: Atraumatic Cardiovascular: Yes: S1, S2 Respiratory: Yes: CTA Bilaterally Gastrointestinal: Yes: Soft Genitourinary: Yes: Other (graft soft and non tender) Musculoskeletal: Yes: WNL Edema: No Neurological: Yes: Oriented Psychiatric: Yes: Oriented Labs: CBC, BMP 11/14/16 07:17 11/14/16 07:17 Problem List - Problems (1) JAMILA (acute kidney injury) Code(s): N17.9 - ACUTE KIDNEY FAILURE, UNSPECIFIED (2) Dehydration Code(s): E86.0 - DEHYDRATION (3) Diarrhea Code(s): R19.7 - DIARRHEA, UNSPECIFIED (4) Hypomagnesemia Code(s): E83.42 - HYPOMAGNESEMIA (5) Pneumonia Code(s): J18.9 - PNEUMONIA, UNSPECIFIED ORGANISM Qualifiers: Pneumonia type: due to unspecified organism Laterality: left Lung location: lower lobe of lung Qualified Code(s): J18.9 - Pneumonia, unspecified organism (6) Renal transplant recipient Code(s): Z94.0 - KIDNEY TRANSPLANT STATUS (7) Gregoria's granulomatosis with renal involvement Code(s): M31.31 - GREGORIA'S GRANULOMATOSIS WITH RENAL INVOLVEMENT (8) Sepsis Code(s): A41.9 - SEPSIS, UNSPECIFIED ORGANISM Assessment/Plan Current Medications Generic Name Dose Route Start Last Admin Trade Name Freq PRN Reason Stop Dose Admin Acetaminophen 650 mg 11/12/16 12:21 11/14/16 11:41 Tylenol - PO 650 mg Q4H PRN Administration FEVER OR PAIN Allopurinol 100 mg 11/13/16 10:00 11/14/16 10:44 Zyloprim - PO 100 mg DAILY ADRIANNA Administration Calcium Carbonate 500 mg 11/12/16 22:00 11/14/16 10:44 Os-Jalen 500mg - PO 500 mg BID ADRIANNA Administration Heparin Sodium (Porcine) 5,000 unit 11/12/16 14:00 11/14/16 13:49 Heparin - SQ Not Given TID ADRIANNA Azithromycin 250 mg/ Dextrose 250 mls @ 250 mls/hr 11/13/16 10:00 11/14/16 10: 45 IVPB 250 mls/hr DAILY [facility] Administration Meropenem 1 gm/ Dextrose 250 mls @ 250 mls/hr 11/13/16 18:00 11/14/16 10:47 IVPB 250 mls/hr BID ADRIANNA Administration Clindamycin Phosphate 50 mls @ 100 mls/hr 11/14/16 06:00 11/14/16 13:50 Cleocin 300 Mg Premix Ivpb IVPB 100 mls/hr Q8H ADRIANNA Administration Mycophenolate Mofetil 500 mg 11/12/16 22:00 11/13/16 22:06 Cellcept - PO 500 mg HS ADRIANNA Administration Mycophenolate Mofetil 1,000 mg 11/13/16 10:00 11/14/16 10:43 Cellcept - PO 1,000 mg DAILY ADRIANNA Administration Non-Formulary Medication 2 mg 11/12/16 22:00 11/13/16 22:06 Tacrolimus [Tacrolimus] PO 2 mg HS ADRIANNA Administration Non-Formulary Medication 1 mg 11/13/16 10:00 11/14/16 10:46 Tacrolimus [Tacrolimus] PO 1 mg DAILY [facility] Administration Ondansetron HCl 4 mg 11/12/16 12:21 Zofran Injection IVPB Q6H PRN NAUSEA Potassium Chloride 40 meq 11/14/16 10:00 11/14/16 10:44 K-Dur - PO 11/14/16 16:01 40 meq Q6H ADRIANNA Administration Pravastatin Sodium 40 mg 11/12/16 22:00 11/13/16 22:06 Pravachol PO 40 mg HS ADRIANNA Administration Prednisone 5 mg 11/13/16 10:00 11/14/16 10:44 Deltasone - PO 5 mg DAILY [facility] Administration Impression 1. CKD 2. s/p kidney transplant x2 3. hx of vasculitis 4. PNA 5. diarrhea/vomiting 6. sepsis 7. gout 8. hyperlipidemia Plan - renal function is back to baseline - can stop fluids - replace potassium - repeat labs in am - abx per ID - follow up cultures - encourage PO intake - check prograf level - will follow Dr Negrete
--- NOTE | 2016-11-14 17:29 | PN ---
Progress Note, Physician History of Present Illness: patient doing much better dirrhoea much less breathing much better patient says that the only problem that is bothering her is her cough - Current Medication List Current Medications: Active Medications Acetaminophen (Tylenol -) 650 mg PO Q4H PRN PRN Reason: FEVER OR PAIN Last Admin: 11/14/16 11:41 Dose: 650 mg Allopurinol (Zyloprim -) 100 mg PO DAILY [facility] Last Admin: 11/14/16 10:44 Dose: 100 mg Calcium Carbonate (Os-Jalen 500mg -) 500 mg PO BID [facility] Last Admin: 11/14/16 10:44 Dose: 500 mg Heparin Sodium (Porcine) (Heparin -) 5,000 unit SQ TID [facility] Last Admin: 11/14/16 13:49 Dose: Not Given Azithromycin 250 mg/ Dextrose 250 mls @ 250 mls/hr IVPB DAILY [facility] Last Admin: 11/14/16 10:45 Dose: 250 mls/hr Meropenem 1 gm/ Dextrose 250 mls @ 250 mls/hr IVPB BID [facility] Last Admin: 11/14/16 10:47 Dose: 250 mls/hr Clindamycin Phosphate (Cleocin 300 Mg Premix Ivpb) 50 mls @ 100 mls/hr IVPB Q8H [facility] Last Admin: 11/14/16 13:50 Dose: 100 mls/hr Mycophenolate Mofetil (Cellcept -) 500 mg PO HS [facility] Last Admin: 11/13/16 22:06 Dose: 500 mg Mycophenolate Mofetil (Cellcept -) 1,000 mg PO DAILY [facility] Last Admin: 11/14/16 10:43 Dose: 1,000 mg Non-Formulary Medication (Tacrolimus [Tacrolimus]) 2 mg PO [facility] Last Admin: 11/13/16 22:06 Dose: 2 mg Non-Formulary Medication (Tacrolimus [Tacrolimus]) 1 mg PO DAILY [facility] Last Admin: 11/14/16 10:46 Dose: 1 mg Ondansetron HCl (Zofran Injection) 4 mg IVPB Q6H PRN PRN Reason: NAUSEA Pravastatin Sodium (Pravachol) 40 mg PO HS [facility] Last Admin: 11/13/16 22:06 Dose: 40 mg Prednisone (Deltasone -) 5 mg PO DAILY [facility] Last Admin: 11/14/16 10:44 Dose: 5 mg - Objective Vital Signs: Vital Signs Temperature 97.2 F L 11/14/16 06:00 Pulse Rate 85 11/14/16 06:00 Respiratory Rate 20 11/14/16 06:00 Blood Pressure 144/97 11/14/16 06:00 O2 Sat by Pulse Oximetry (%) 95 11/13/16 21:00 Constitutional: Yes: No Distress, Calm Neck: Yes: Supple, Trachea Midline Cardiovascular: Yes: Regular Rate and Rhythm Respiratory: Yes: Regular, Poor Air Entry, Rhonchi Gastrointestinal: Yes: Normal Bowel Sounds, Soft Musculoskeletal: Yes: WNL Extremities: Yes: WNL Neurological: Yes: Alert, Oriented Psychiatric: Yes: Alert, Oriented Labs: CBC, BMP 11/14/16 07:17 11/14/16 07:17 Assessment/Plan this patient who is very immunocompromised with 2nd kidney transplant now getting admitted with pneumonia and dirrhoea with being very weak and very less urine output 61 year-old woman with a PMH of Gregoria's granulomatosis s/p renal transplant x 2 (1989, 2005 at [place]). Admitted for JAMILA and pneumonia. Acute kidney injury Azotemia Lactic acidosis Renal transplant recipient Pneumonia Thrombocytopenia Diarrhea Gregoria's granulomatosis patient needs aggressive hydration and treatment to prevent her from going into renal failure i will also start abx she needs very broad coverage as anything on her cannot be missed because of her status plan conitnue abx await for all cx report by tuesday should be able to change to po close watch on urine output
[2016-11-14] MEDS: PRAVASTATIN NA 40 MG TABLET PO SCH (22:20)
[2016-11-14] MEDS: TACROLIMUS 2 MG PO SCH (22:20)
[2016-11-14] MEDS ORDERED: PT OWN MED DRAWER 7, Y5N ONE (22:53)
[2016-11-15] MEDS ORDERED: PT OWN MED DRAWER 7, Y5N ONE ×2 (06:22→10:20)
[2016-11-15] MEDS: CLINDAMYCIN 300 MG PREMIX IVPB 50 ML IVPB SCH ×3 (06:40→21:23)
[2016-11-15] MEDS: HEPARIN NA (PORCINE) 5,000 UNITS/ML 1ML VIAL SQ SCH ×3 (06:40→21:23)
[2016-11-15 08:42] LABS: MCH 29.3 pg (25.7-33.7); MCHC 32.8 g/dl (32.0-36.0); MEAN CELL VOLUME 89.1 fl (80-96); MEAN PLT VOLUME 8.6 fl (7.5-11.1); PLATELET COUNT 112 K/MM3 (134-434); RDW 14.6 % (11.6-15.6); WHITE BLOOD COUNT 4.9 K/mm3 (4.0-10.0)
[2016-11-15 09:06] LABS: ALBUMIN 2.5 g/dl (3.4-5.0); BILIRUBIN,TOTAL 0.5 mg/dL (0.2-1.0); CALCIUM 8.5 mg/dL (8.5-10.1); TOT PROT 5.8 g/dl (6.4-8.2)
[2016-11-15] MEDS: MYCOPHENOLATE MOFETIL 500 MG TABLET PO SCH ×2 (10:11→21:22)
[2016-11-15] MEDS: predniSONE 5 MG TABLET (UD) PO SCH (10:12)
[2016-11-15] MEDS: MEROPENEM 1 GM in DEXTROSE 5%-WATER - 250 ML IVPB SCH ×2 (10:12→21:21)
[2016-11-15] MEDS: TACROLIMUS 1 MG PO SCH (10:13)
[2016-11-15] MEDS: CALCIUM (OYSTER SHELL) 500 MG TABLET (FP) PO SCH ×2 (10:13→21:22)
[2016-11-15] MEDS: ACETAMINOPHEN 325 MG TABLET (FP) PO PRN (10:13)
[2016-11-15] MEDS: ALLOPURINOL 100 MG TABLET (FP) PO SCH (10:14)
[2016-11-15] MEDS: AZITHROMYCIN IVPB 250 MG in DEXTROSE 5%-WATER - 250 ML IVPB SCH (10:21)
--- NOTE | 2016-11-15 11:09 | PN ---
Progress Note, Physician History of Present Illness: Pt seen and examined at bedside. She feels better today. She still has a cough. - Current Medication List Current Medications: Active Medications Acetaminophen (Tylenol -) 650 mg PO Q4H PRN PRN Reason: FEVER OR PAIN Last Admin: 11/15/16 10:13 Dose: 650 mg Allopurinol (Zyloprim -) 100 mg PO DAILY [facility] Last Admin: 11/15/16 10:14 Dose: 100 mg Calcium Carbonate (Os-Jalen 500mg -) 500 mg PO BID [facility] Last Admin: 11/15/16 10:13 Dose: 500 mg Heparin Sodium (Porcine) (Heparin -) 5,000 unit SQ TID [facility] Last Admin: 11/15/16 06:40 Dose: Not Given Azithromycin 250 mg/ Dextrose 250 mls @ 250 mls/hr IVPB DAILY [facility] Last Admin: 11/15/16 10:21 Dose: 250 mls/hr Meropenem 1 gm/ Dextrose 250 mls @ 250 mls/hr IVPB BID [facility] Last Admin: 11/15/16 10:12 Dose: 250 mls/hr Clindamycin Phosphate (Cleocin 300 Mg Premix Ivpb) 50 mls @ 100 mls/hr IVPB Q8H [facility] Last Admin: 11/15/16 06:40 Dose: 100 mls/hr Mycophenolate Mofetil (Cellcept -) 500 mg PO HS [facility] Last Admin: 11/14/16 22:19 Dose: 500 mg Mycophenolate Mofetil (Cellcept -) 1,000 mg PO DAILY [facility] Last Admin: 11/15/16 10:11 Dose: 1,000 mg Non-Formulary Medication (Tacrolimus [Tacrolimus]) 2 mg PO HS [facility] Last Admin: 11/14/16 22:20 Dose: 2 mg Non-Formulary Medication (Tacrolimus [Tacrolimus]) 1 mg PO DAILY [facility] Last Admin: 11/15/16 10:13 Dose: 1 mg Ondansetron HCl (Zofran Injection) 4 mg IVPB Q6H PRN PRN Reason: NAUSEA Pravastatin Sodium (Pravachol) 40 mg PO HS [facility] Last Admin: 11/14/16 22:20 Dose: 40 mg Prednisone (Deltasone -) 5 mg PO DAILY [facility] Last Admin: 11/15/16 10:12 Dose: 5 mg - Objective Vital Signs: Vital Signs Temperature 98.6 F 11/15/16 06:00 Pulse Rate 74 11/15/16 06:00 Respiratory Rate 18 11/15/16 06:00 Blood Pressure 140/95 11/15/16 06:00 O2 Sat by Pulse Oximetry (%) 95 11/14/16 21:00 Constitutional: Yes: Calm Eyes: Yes: Conjunctiva Clear HENT: Yes: Atraumatic Neck: Yes: Supple Cardiovascular: Yes: S1, S2 Respiratory: Yes: CTA Bilaterally Gastrointestinal: Yes: Soft Genitourinary: Yes: Other (graft soft and non tender) Musculoskeletal: Yes: WNL Edema: No Neurological: Yes: Oriented Psychiatric: Yes: Oriented Labs: CBC, BMP 11/15/16 08:25 11/15/16 08:25 Problem List - Problems (1) JAMILA (acute kidney injury) Code(s): N17.9 - ACUTE KIDNEY FAILURE, UNSPECIFIED (2) Dehydration Code(s): E86.0 - DEHYDRATION (3) Diarrhea Code(s): R19.7 - DIARRHEA, UNSPECIFIED (4) Hypomagnesemia Code(s): E83.42 - HYPOMAGNESEMIA (5) Pneumonia Code(s): J18.9 - PNEUMONIA, UNSPECIFIED ORGANISM Qualifiers: Pneumonia type: due to unspecified organism Laterality: left Lung location: lower lobe of lung Qualified Code(s): J18.9 - Pneumonia, unspecified organism (6) Renal transplant recipient Code(s): Z94.0 - KIDNEY TRANSPLANT STATUS (7) Gregoria's granulomatosis with renal involvement Code(s): M31.31 - GREGORIA'S GRANULOMATOSIS WITH RENAL INVOLVEMENT (8) Sepsis Code(s): A41.9 - SEPSIS, UNSPECIFIED ORGANISM Assessment/Plan Current Medications Generic Name Dose Route Start Last Admin Trade Name Freq PRN Reason Stop Dose Admin Acetaminophen 650 mg 11/12/16 12:21 11/15/16 10:13 Tylenol - PO 650 mg Q4H PRN Administration FEVER OR PAIN Allopurinol 100 mg 11/13/16 10:00 11/15/16 10:14 Zyloprim - PO 100 mg DAILY [facility] Administration Calcium Carbonate 500 mg 11/12/16 22:00 11/15/16 10:13 Os-Jalen 500mg - PO 500 mg BID [facility] Administration Heparin Sodium (Porcine) 5,000 unit 11/12/16 14:00 11/15/16 06:40 Heparin - SQ Not Given TID [facility] Azithromycin 250 mg/ Dextrose 250 mls @ 250 mls/hr 11/13/16 10:00 11/15/16 10: 21 IVPB 250 mls/hr DAILY [facility] Administration Meropenem 1 gm/ Dextrose 250 mls @ 250 mls/hr 11/13/16 18:00 11/15/16 10:12 IVPB 250 mls/hr BID [facility] Administration Clindamycin Phosphate 50 mls @ 100 mls/hr 11/14/16 06:00 11/15/16 06:40 Cleocin 300 Mg Premix Ivpb IVPB 100 mls/hr Q8H [facility] Administration Mycophenolate Mofetil 500 mg 11/12/16 22:00 11/14/16 22:19 Cellcept - PO 500 mg HS [facility] Administration Mycophenolate Mofetil 1,000 mg 11/13/16 10:00 11/15/16 10:11 Cellcept - PO 1,000 mg DAILY [facility] Administration Non-Formulary Medication 2 mg 11/12/16 22:00 11/14/16 22:20 Tacrolimus [Tacrolimus] PO 2 mg HS [facility] Administration Non-Formulary Medication 1 mg 11/13/16 10:00 11/15/16 10:13 Tacrolimus [Tacrolimus] PO 1 mg DAILY [facility] Administration Ondansetron HCl 4 mg 11/12/16 12:21 Zofran Injection IVPB Q6H PRN NAUSEA Pravastatin Sodium 40 mg 11/12/16 22:00 11/14/16 22:20 Pravachol PO 40 mg HS [facility] Administration Prednisone 5 mg 11/13/16 10:00 11/15/16 10:12 Deltasone - PO 5 mg DAILY [facility] Administration Laboratory Tests 11/13/16 11/13/16 11/13/16 07:00 07:00 07:00 Tacrolimus Pending CMV IgG Ab Pending CMV IgM Ab Pending CMV DNA Qual PCR Pending Impression 1. CKD 2. s/p kidney transplant x2 3. hx of vasculitis 4. PNA 5. diarrhea/vomiting 6. sepsis 7. gout 8. hyperlipidemia Plan - renal function is stable - will keep off of fluids for now - abs per ID - follow up cultures - encourage PO intake - check prograf level - will follow Dr Negrete
--- NOTE | 2016-11-15 14:32 | PN ---
Physical Exam: SUBJECTIVE: Patient seen and examined. OBJECTIVE: Vital Signs Period Temp Pulse Resp BP Sys/Gale Pulse Ox Last 24 Hr 97.5 F-98.6 F 74-76 18-20 136-149/91-95 95 GENERAL: The patient is awake, alert, and fully oriented, in no acute distress. HEAD: Normal with no signs of trauma. EYES: PERRL, extraocular movements intact, sclera anicteric, conjunctiva clear. No ptosis. LUNGS: Poor air movement. HEART: Regular rate and rhythm, S1, S2 without murmur, rub or gallop. ABDOMEN: Soft, nontender, nondistended, normoactive bowel sounds, no guarding, no rebound, no hepatosplenomegaly, no masses. EXTREMITIES: 2+ pulses, warm, well-perfused, no edema. NEUROLOGICAL: Cranial nerves II through XII grossly intact. Normal speech, gait not observed. PSYCH: Normal mood, normal affect. SKIN: Warm, dry, normal turgor, no rashes or lesions noted Active Medications Generic Name Dose Route Start Trade Name Freq PRN Reason Stop Acetaminophen 650 mg 11/12/16 12:21 Tylenol - PO Q4H PRN FEVER OR PAIN Allopurinol 100 mg 11/13/16 10:00 Zyloprim - PO DAILY [facility] Calcium Carbonate 500 mg 11/12/16 22:00 Os-Jalen 500mg - PO BID [facility] Heparin Sodium (Porcine) 5,000 unit 11/12/16 14:00 Heparin - SQ TID [facility] Azithromycin 250 mg/ Dextrose 250 mls @ 250 mls/hr 11/13/16 10:00 IVPB DAILY [facility] Meropenem 1 gm/ Dextrose 250 mls @ 250 mls/hr 11/13/16 18:00 IVPB BID [facility] Clindamycin Phosphate 50 mls @ 100 mls/hr 11/14/16 06:00 Cleocin 300 Mg Premix Ivpb IVPB Q8H [facility] Mycophenolate Mofetil 500 mg 11/12/16 22:00 Cellcept - PO HS [facility] Mycophenolate Mofetil 1,000 mg 11/13/16 10:00 Cellcept - PO DAILY [facility] Non-Formulary Medication 2 mg 11/12/16 22:00 Tacrolimus [Tacrolimus] PO HS [facility] Non-Formulary Medication 1 mg 11/13/16 10:00 Tacrolimus [Tacrolimus] PO DAILY [facility] Ondansetron HCl 4 mg 11/12/16 12:21 Zofran Injection IVPB Q6H PRN NAUSEA Pravastatin Sodium 40 mg 11/12/16 22:00 Pravachol PO HS [facility] Prednisone 5 mg 11/13/16 10:00 Deltasone - PO DAILY [facility] 61 year-old woman with a PMH of Gregoria's granulomatosis s/p renal transplant x 2 (1989, 2005 at [place]). Admitted for JAMILA and pneumonia. Acute kidney injury Azotemia --Cr 2.7 on admission, now 1.2 which is baseline --FeNa 0.9%, pre-renal azotemia --continue IV fluids --renal following Lactic acidosis secondary to dehydration, resolved --LA improved with fluid resuscitation, now wnl Renal transplant recipient --US shows functional left transplanted kidney; atrophic [place] right kidney --on tacrolimus, mycophenalate, prednisone Bacterial Pneumonia --2/3 CXR: LLL infiltrate with left pleural effusion --afebrile, WBC wnl --continue azithromycin, clinda IV, and meropenem --flu swab negative; urine pneumonia antigens negative; blood and sputum cultures pending Thrombocytopenia --baseline unknown, common side effect of cellcept up to 38% Diarrhea --c.diff, negative --O&P, stool culture pending Gregoria's granulomatosis Hypokalemia --repleted F/E/N Fluids: NS @100mL/hr Electrolytes: replete as indicated Nutrition: regular diet DVT prophylaxis: subq heparin, oob, ambulation Dispo: continues to require inpatient care. Full Code. Visit type - Emergency Visit Emergency Visit: Yes ED Registration Date: 11/12/16 Care time: The patient presented to the Emergency Department on the above date and was hospitalized for further evaluation of their emergent condition. - New Patient This patient is new to me today: No - Critical Care Critical Care patient: No
--- NOTE | 2016-11-15 16:38 | PN ---
Progress Note (short form) - Note Progress Note: Subjective: The patient was seen and examined at the bedside, she reports diarrhea has resolved. She has no complaints at this time. WBC wnl Afebrile Current Medications Generic Name Dose Route Start Last Admin Trade Name Freq PRN Reason Stop Dose Admin Acetaminophen 650 mg 11/12/16 12:21 11/15/16 10:13 Tylenol - PO 650 mg Q4H PRN Administration FEVER OR PAIN Allopurinol 100 mg 11/13/16 10:00 11/15/16 10:14 Zyloprim - PO 100 mg DAILY [facility] Administration Calcium Carbonate 500 mg 11/12/16 22:00 11/15/16 10:13 Os-Jalen 500mg - PO 500 mg BID [facility] Administration Heparin Sodium (Porcine) 5,000 unit 11/12/16 14:00 11/15/16 14:30 Heparin - SQ Not Given TID [facility] Azithromycin 250 mg/ Dextrose 250 mls @ 250 mls/hr 11/13/16 10:00 11/15/16 10: 21 IVPB 250 mls/hr DAILY [facility] Administration Meropenem 1 gm/ Dextrose 250 mls @ 250 mls/hr 11/13/16 18:00 11/15/16 10:12 IVPB 250 mls/hr BID [facility] Administration Clindamycin Phosphate 50 mls @ 100 mls/hr 11/14/16 06:00 11/15/16 14:30 Cleocin 300 Mg Premix Ivpb IVPB 100 mls/hr Q8H [facility] Administration Mycophenolate Mofetil 500 mg 11/12/16 22:00 11/14/16 22:19 Cellcept - PO 500 mg HS [facility] Administration Mycophenolate Mofetil 1,000 mg 11/13/16 10:00 11/15/16 10:11 Cellcept - PO 1,000 mg DAILY [facility] Administration Non-Formulary Medication 2 mg 11/12/16 22:00 11/14/16 22:20 Tacrolimus [Tacrolimus] PO 2 mg HS [facility] Administration Non-Formulary Medication 1 mg 11/13/16 10:00 11/15/16 10:13 Tacrolimus [Tacrolimus] PO 1 mg DAILY [facility] Administration Ondansetron HCl 4 mg 11/12/16 12:21 Zofran Injection IVPB Q6H PRN NAUSEA Pravastatin Sodium 40 mg 11/12/16 22:00 11/14/16 22:20 Pravachol PO 40 mg HS [facility] Administration Prednisone 5 mg 11/13/16 10:00 11/15/16 10:12 Deltasone - PO 5 mg DAILY [facility] Administration Objective: Vital Signs Period Temp Pulse Resp BP Sys/Gale Pulse Ox Last 24 Hr 97.5 F-98.8 F 74-76 18-20 125-149/85-95 95 Physical Exam: General: NAD, A&Ox3 Lungs: CTA bilaterally Heart: RRR, S1S2 Abd: Soft, non-tender, non-distended. Normoactive bowel sounds Ext: Warm, well-perfused 2+ DP/PT bilaterally Neuro: CN 2-12 intact CBCD WBC 4.9 K/mm3 (4.0-10.0) D 11/15/16 08:25 RBC 3.93 M/mm3 (3.60-5.2) 11/15/16 08:25 Hgb 11.5 GM/dL (10.7-15.3) 11/15/16 08:25 Hct 35.1 % (32.4-45.2) 11/15/16 08:25 MCV 89.1 fl (80-96) 11/15/16 08:25 MCHC 32.8 g/dl (32.0-36.0) 11/15/16 08:25 RDW 14.6 % (11.6-15.6) 11/15/16 08:25 Plt Count 112 K/MM3 (134-434) L D 11/15/16 08:25 MPV 8.6 fl (7.5-11.1) 11/15/16 08:25 CMP Sodium 142 mmol/L (136-145) 11/15/16 08:25 Potassium 3.8 mmol/L (3.5-5.1) 11/15/16 08:25 Chloride 107 mmol/L (98-107) 11/15/16 08:25 Carbon Dioxide 25 mmol/L (21-32) 11/15/16 08:25 Anion Gap 10 (8-16) 11/15/16 08:25 BUN 18 mg/dL (7-18) 11/15/16 08:25 Creatinine 1.0 mg/dL (0.55-1.02) 11/15/16 08:25 Creat Clearance w eGFR 56.18 (>60) 11/15/16 08:25 Random Glucose 89 mg/dL (74-106) 11/15/16 08:25 Calcium 8.5 mg/dL (8.5-10.1) 11/15/16 08:25 Total Bilirubin 0.5 mg/dL (0.2-1.0) 11/15/16 08:25 AST 37 U/L (15-37) D 11/15/16 08:25 ALT 45 U/L (12-78) 11/15/16 08:25 Alkaline Phosphatase 124 U/L (45-117) H D 11/15/16 08:25 Total Protein 5.8 g/dl (6.4-8.2) L 11/15/16 08:25 Albumin 2.5 g/dl (3.4-5.0) L 11/15/16 08:25 Microbiology 11/12/16 09:30 Nasopharyngeal Swab Respiratory Virus Panel - Preliminary 11/13/16 10:11 Stool Salmonella/Shigella Culture - Final Yeast Like Organism 11/13/16 10:11 Stool Campylobacter Culture - Final NO GROWTH OF CAMPYLOBACTER SPECIES OBTAINED 11/13/16 10:11 Stool Yersinia Culture - Final NO GROWTH OF YERSINIA SPECIES OBTAINED 11/13/16 10:11 Stool Vibrio Culture - Final 11/13/16 10:11 Stool Escherichia coli 0157 Culture - Final NO GROWTH OF E COLI 0157 OBTAINED 11/13/16 09:00 Sputum - Expectorated Gram Stain - Final 11/13/16 09:00 Sputum - Expectorated Sputum Culture - Final NORMAL RESPIRATORY BRENDA 11/12/16 10:49 Blood - Peripheral Venous Blood Culture - Preliminary NO GROWTH OBTAINED AFTER 72 HOURS, INCUBATION TO CONTINUE FOR 2 DAYS. 11/12/16 10:49 Blood - Peripheral Venous Blood Culture - Preliminary NO GROWTH OBTAINED AFTER 72 HOURS, INCUBATION TO CONTINUE FOR 2 DAYS. 11/12/16 22:45 Urine - Urine Clean Catch Urine Culture - Final NO GROWTH OBTAINED 11/12/16 15:59 Stool Clostridium difficile Antigen (ALEX) - Final 11/12/16 15:59 Stool Clostridium difficile Toxin Assay - Final 11/12/16 22:45 Urine For Antigen Detection Legionella Antigen - Final 11/12/16 22:45 Urine For Antigen Detection Streptococcus pneumoniae Antigen (M - Final 11/12/16 09:30 Nasopharyngeal Swab Influenza Types A,B Antigen (ALEX) - Final 11/12/16 09:30 Nasopharyngeal Swab - Final Assessment: This is a 61 year old female with PMHx of Gregoria's granulomatosis s /p renal transplant 1989 and 2005 who presented to the ED with cough and productive sputum and black diarrhea with vomiting. Plan: 1) ID: Severe sepsis 2/2 pneumonia - Chest X-ray with left lower lobe pneumonia with reactive left pleural effusion - Lactic acidosis resolved - WBC wnl - Afebrile - Continue Meropenem and Azithromycin until Tuesday given the patient is immunocompromised - All cultures noted - Appreciate ID consult 2) : JAMILA - Baseline Cr 1.3-1.4: on admission was 2.7 - Cr now 1.0 Renal transplant recipient - S/p renal transplant 1989, 2005 - [place] with functional left renal transplant, no normal functioning right kidney - Continue Tacrolimus - Continue Prednisone - Continue Cellcept 3) Heme: Thrombocytopenia - Improving - Likely 2/2 immunotherapy 4) GI: Diarrhea - Resolving - C.diff negative 5) F/E/N: - Regular diet - Monitor electrolytes 6) Prophylaxis: - Heparin 5,000u sq bid - OOB ambulating - SCDs bilaterally 7) Dispo: - Requires continued inpatient care CODE STATUS: FULL CODE Visit type - Emergency Visit Emergency Visit: Yes ED Registration Date: 11/12/16 Care time: The patient presented to the Emergency Department on the above date and was hospitalized for further evaluation of their emergent condition. - New Patient This patient is new to me today: Yes Date on this admission: 11/15/16 - Critical Care Critical Care patient: No
--- NOTE | 2016-11-15 16:38 | PN ---
Progress Note, Physician History of Present Illness: feeling much better still coughing urine output better appetite improved - Current Medication List Current Medications: Active Medications Acetaminophen (Tylenol -) 650 mg PO Q4H PRN PRN Reason: FEVER OR PAIN Last Admin: 11/15/16 10:13 Dose: 650 mg Allopurinol (Zyloprim -) 100 mg PO DAILY [facility] Last Admin: 11/15/16 10:14 Dose: 100 mg Calcium Carbonate (Os-Jalen 500mg -) 500 mg PO BID [facility] Last Admin: 11/15/16 10:13 Dose: 500 mg Heparin Sodium (Porcine) (Heparin -) 5,000 unit SQ TID [facility] Last Admin: 11/15/16 14:30 Dose: Not Given Azithromycin 250 mg/ Dextrose 250 mls @ 250 mls/hr IVPB DAILY [facility] Last Admin: 11/15/16 10:21 Dose: 250 mls/hr Meropenem 1 gm/ Dextrose 250 mls @ 250 mls/hr IVPB BID [facility] Last Admin: 11/15/16 10:12 Dose: 250 mls/hr Clindamycin Phosphate (Cleocin 300 Mg Premix Ivpb) 50 mls @ 100 mls/hr IVPB Q8H [facility] Last Admin: 11/15/16 14:30 Dose: 100 mls/hr Mycophenolate Mofetil (Cellcept -) 500 mg PO HS [facility] Last Admin: 11/14/16 22:19 Dose: 500 mg Mycophenolate Mofetil (Cellcept -) 1,000 mg PO DAILY [facility] Last Admin: 11/15/16 10:11 Dose: 1,000 mg Non-Formulary Medication (Tacrolimus [Tacrolimus]) 2 mg PO HS [facility] Last Admin: 11/14/16 22:20 Dose: 2 mg Non-Formulary Medication (Tacrolimus [Tacrolimus]) 1 mg PO DAILY [facility] Last Admin: 11/15/16 10:13 Dose: 1 mg Ondansetron HCl (Zofran Injection) 4 mg IVPB Q6H PRN PRN Reason: NAUSEA Pravastatin Sodium (Pravachol) 40 mg PO HS [facility] Last Admin: 11/14/16 22:20 Dose: 40 mg Prednisone (Deltasone -) 5 mg PO DAILY [facility] Last Admin: 11/15/16 10:12 Dose: 5 mg - Objective Vital Signs: Vital Signs Temperature 98.8 F 11/15/16 15:55 Pulse Rate 76 11/15/16 15:55 Respiratory Rate 18 11/15/16 15:55 Blood Pressure 125/85 11/15/16 15:55 O2 Sat by Pulse Oximetry (%) 95 11/14/16 21:00 Constitutional: Yes: No Distress, Calm Respiratory: Yes: Regular, Poor Air Entry, Rhonchi, Other (decreased air entry) Gastrointestinal: Yes: Normal Bowel Sounds, Soft Musculoskeletal: Yes: WNL Extremities: Yes: WNL Neurological: Yes: Alert, Oriented Psychiatric: Yes: Alert Labs: CBC, BMP 11/15/16 08:25 11/15/16 08:25 Assessment/Plan this patient who is very immunocompromised with 2nd kidney transplant now getting admitted with pneumonia and dirrhoea with being very weak and very less urine output 61 year-old woman with a PMH of Gregoria's granulomatosis s/p renal transplant x 2 (1989, 2005 at [place]). Admitted for JAMILA and pneumonia. Acute kidney injury Azotemia Lactic acidosis Renal transplant recipient Pneumonia Thrombocytopenia Diarrhea Gregoria's granulomatosis patient needs aggressive hydration and treatment to prevent her from going into renal failure i will also start abx she needs very broad coverage as anything on her cannot be missed because of her status plan conitnue abx await for all cx report will continue iv til wed as patient is still coughin then will change to po
[2016-11-15] MEDS ORDERED: AZITHROMYCIN IVPB 500 MG/250 ML D5W PRE-DOCKED IVPB ONE (19:00)
[2016-11-15] MEDS: PRAVASTATIN NA 40 MG TABLET PO SCH (21:22)
[2016-11-15] MEDS: TACROLIMUS 2 MG PO SCH (21:23)
[2016-11-16] MEDS: ACETAMINOPHEN 325 MG TABLET (FP) PO PRN ×2 (00:10→22:51)
[2016-11-16] MEDS: HEPARIN NA (PORCINE) 5,000 UNITS/ML 1ML VIAL SQ SCH ×3 (05:48→22:53)
[2016-11-16] MEDS: CLINDAMYCIN 300 MG PREMIX IVPB 50 ML IVPB SCH ×3 (06:10→22:48)
[2016-11-16] MEDS: guaiFENesin 200 MG/10 ML 10 ML UNIT-DOSE CUPS PO PRN ×3 (06:10→22:51)
[2016-11-16 08:09] LABS: MCH 29.2 pg (25.7-33.7); MCHC 33.2 g/dl (32.0-36.0); MEAN CELL VOLUME 87.8 fl (80-96); MEAN PLT VOLUME 8.3 fl (7.5-11.1); PLATELET COUNT 129 K/MM3 (134-434); RDW 14.5 % (11.6-15.6); WHITE BLOOD COUNT 4.9 K/mm3 (4.0-10.0)
[2016-11-16 08:32] LABS: CALCIUM 8.6 mg/dL (8.5-10.1)
[2016-11-16 08:39] LABS: ALBUMIN 2.6 g/dl (3.4-5.0); BILIRUBIN,TOTAL 0.6 mg/dL (0.2-1.0); CREATININE 1.1 mg/dL (0.55-1.02); TOT PROT 5.9 g/dl (6.4-8.2)
[2016-11-16] MEDS ORDERED: PT OWN MED DRAWER 7, Y5N ONE ×2 (09:34→10:20)
[2016-11-16] MEDS: ALLOPURINOL 100 MG TABLET (FP) PO SCH (09:43)
[2016-11-16] MEDS: CALCIUM (OYSTER SHELL) 500 MG TABLET (FP) PO SCH ×2 (09:43→22:49)
[2016-11-16] MEDS: predniSONE 5 MG TABLET (UD) PO SCH (09:43)
[2016-11-16] MEDS: TACROLIMUS 1 MG PO SCH (09:46)
[2016-11-16] MEDS: MEROPENEM 1 GM in DEXTROSE 5%-WATER - 250 ML IVPB SCH ×2 (09:50→22:48)
[2016-11-16] MEDS: MYCOPHENOLATE MOFETIL 500 MG TABLET PO SCH ×2 (09:51→22:47)
[2016-11-16] MEDS: AZITHROMYCIN IVPB 250 MG in DEXTROSE 5%-WATER - 250 ML IVPB SCH (13:07)
--- NOTE | 2016-11-16 14:55 | PN ---
Progress Note (short form) - Note Progress Note: Subjective: The patient was seen and examined at the bedside, she denies any issues at this time Per ID: can transition to po in AM Current Medications Generic Name Dose Route Start Last Admin Trade Name Freq PRN Reason Stop Dose Admin Acetaminophen 650 mg 11/12/16 12:21 11/16/16 00:10 Tylenol - PO 650 mg Q4H PRN Administration FEVER OR PAIN Allopurinol 100 mg 11/13/16 10:00 11/16/16 09:43 Zyloprim - PO 100 mg DAILY ADRIANNA Administration Calcium Carbonate 500 mg 11/12/16 22:00 11/16/16 09:43 Os-Jalen 500mg - PO 500 mg BID ADRIANNA Administration Guaifenesin 10 ml 11/16/16 02:05 11/16/16 13:06 Robitussin - PO 10 ml Q6H PRN Administration COUGH Heparin Sodium (Porcine) 5,000 unit 11/12/16 14:00 11/16/16 05:48 Heparin - SQ Not Given TID ADRIANNA Azithromycin 250 mg/ Dextrose 250 mls @ 250 mls/hr 11/13/16 10:00 11/16/16 13: 07 IVPB 250 mls/hr DAILY ADRIANNA Administration Meropenem 1 gm/ Dextrose 250 mls @ 250 mls/hr 11/13/16 18:00 11/16/16 09:50 IVPB 250 mls/hr BID ADRIANNA Administration Clindamycin Phosphate 50 mls @ 100 mls/hr 11/14/16 06:00 11/16/16 06:10 Cleocin 300 Mg Premix Ivpb IVPB 100 mls/hr Q8H ADRIANNA Administration Mycophenolate Mofetil 500 mg 11/12/16 22:00 11/15/16 21:22 Cellcept - PO 500 mg HS ADRIANNA Administration Mycophenolate Mofetil 1,000 mg 11/13/16 10:00 11/16/16 09:51 Cellcept - PO 1,000 mg DAILY ADRIANNA Administration Non-Formulary Medication 2 mg 11/12/16 22:00 11/15/16 21:23 Tacrolimus [Tacrolimus] PO 2 mg HS ADRIANNA Administration Non-Formulary Medication 1 mg 11/13/16 10:00 11/16/16 09:46 Tacrolimus [Tacrolimus] PO 1 mg DAILY AD[facility]ANNA Administration Ondansetron HCl 4 mg 11/12/16 12:21 Zofran Injection IVPB Q6H PRN NAUSEA Pravastatin Sodium 40 mg 11/12/16 22:00 11/15/16 21:22 Pravachol PO 40 mg HS ADRIANNA Administration Prednisone 5 mg 11/13/16 10:00 11/16/16 09:43 Deltasone - PO 5 mg DAILY ADRIANNA Administration Objective: Vital Signs Period Temp Pulse Resp BP Sys/Gale Pulse Ox Last 24 Hr 97.3 F-98.8 F 67-76 18-18 125-144/85-90 93 Physical Exam: General: NAD, A&Ox3 Lungs: CTA bilaterally Heart: RRR, S1S2 Abd: Soft, non-tender, non-distended. Normoactive bowel sounds Ext: Warm, well-perfused 2+ DP/PT bilaterally Neuro: CN 2-12 intact CBCD WBC 4.9 K/mm3 (4.0-10.0) 11/16/16 06:00 RBC 4.09 M/mm3 (3.60-5.2) 11/16/16 06:00 Hgb 11.9 GM/dL (10.7-15.3) 11/16/16 06:00 Hct 35.9 % (32.4-45.2) 11/16/16 06:00 MCV 87.8 fl (80-96) 11/16/16 06:00 MCHC 33.2 g/dl (32.0-36.0) 11/16/16 06:00 RDW 14.5 % (11.6-15.6) 11/16/16 06:00 Plt Count 129 K/MM3 (134-434) L 11/16/16 06:00 MPV 8.3 fl (7.5-11.1) 11/16/16 06:00 CMP Sodium 141 mmol/L (136-145) 11/16/16 06:00 Potassium 3.5 mmol/L (3.5-5.1) 11/16/16 06:00 Chloride 104 mmol/L (98-107) 11/16/16 06:00 Carbon Dioxide 27 mmol/L (21-32) 11/16/16 06:00 Anion Gap 10 (8-16) 11/16/16 06:00 BUN 17 mg/dL (7-18) 11/16/16 06:00 Creatinine 1.1 mg/dL (0.55-1.02) H 11/16/16 06:00 Creat Clearance w eGFR 50.33 (>60) 11/16/16 06:00 Random Glucose 114 mg/dL (74-106) H D 11/16/16 06:00 Calcium 8.6 mg/dL (8.5-10.1) 11/16/16 06:00 Total Bilirubin 0.6 mg/dL (0.2-1.0) 11/16/16 06:00 AST 27 U/L (15-37) D 11/16/16 06:00 ALT 39 U/L (12-78) 11/16/16 06:00 Alkaline Phosphatase 110 U/L (45-117) 11/16/16 06:00 Total Protein 5.9 g/dl (6.4-8.2) L 11/16/16 06:00 Albumin 2.6 g/dl (3.4-5.0) L 11/16/16 06:00 Microbiology 11/12/16 16:15 Stool Parasite Direct Smear - Final 11/12/16 16:15 Stool Ova and Parasite Macroscopic Exam - Final 11/12/16 16:15 Stool Parasite Concentrated Smear - Preliminary 11/12/16 16:15 Stool Parasite Permanent Smear - Preliminary 11/12/16 16:15 Stool Cryptosporidium Antigen - Final 11/12/16 16:15 Stool Giardia Antigen (ALEX) - Final 11/12/16 10:49 Blood - Peripheral Venous Blood Culture - Preliminary NO GROWTH OBTAINED AFTER 96 HOURS, INCUBATION TO CONTINUE FOR 1 DAYS. 11/12/16 10:49 Blood - Peripheral Venous Blood Culture - Preliminary NO GROWTH OBTAINED AFTER 96 HOURS, INCUBATION TO CONTINUE FOR 1 DAYS. 11/12/16 09:30 Nasopharyngeal Swab Respiratory Virus Panel - Preliminary 11/13/16 10:11 Stool Salmonella/Shigella Culture - Final Yeast Like Organism 11/13/16 10:11 Stool Campylobacter Culture - Final NO GROWTH OF CAMPYLOBACTER SPECIES OBTAINED 11/13/16 10:11 Stool Yersinia Culture - Final NO GROWTH OF YERSINIA SPECIES OBTAINED 11/13/16 10:11 Stool Vibrio Culture - Final 11/13/16 10:11 Stool Escherichia coli 0157 Culture - Final NO GROWTH OF E COLI 0157 OBTAINED 11/13/16 09:00 Sputum - Expectorated Gram Stain - Final 11/13/16 09:00 Sputum - Expectorated Sputum Culture - Final NORMAL RESPIRATORY BRENDA 11/12/16 22:45 Urine - Urine Clean Catch Urine Culture - Final NO GROWTH OBTAINED 11/12/16 15:59 Stool Clostridium difficile Antigen (ALEX) - Final 11/12/16 15:59 Stool Clostridium difficile Toxin Assay - Final 11/12/16 22:45 Urine For Antigen Detection Legionella Antigen - Final 11/12/16 22:45 Urine For Antigen Detection Streptococcus pneumoniae Antigen (M - Final 11/12/16 09:30 Nasopharyngeal Swab Influenza Types A,B Antigen (ALEX) - Final 11/12/16 09:30 Nasopharyngeal Swab - Final Assessment: This is a 61 year old female with PMHx of Gregoria's granulomatosis s /p renal transplant 1989 and 2005 who presented to the ED with cough and productive sputum and black diarrhea with vomiting. Plan: 1) ID: Severe sepsis 2/2 pneumonia - Chest X-ray with left lower lobe pneumonia with reactive left pleural effusion - Lactic acidosis resolved - WBC wnl - Afebrile - Continue Meropenem and Azithromycin until per ID given the patient is immunocompromised - All cultures noted - Appreciate ID consult 2) : JAMILA - Baseline Cr 1.3-1.4: on admission was 2.7 - Cr now 1.0 Renal transplant recipient - S/p renal transplant 1989, 2005 - [place] with functional left renal transplant, no normal functioning right kidney - Continue Tacrolimus - Continue Prednisone - Continue Cellcept 3) Heme: Thrombocytopenia - Improving - Likely 2/2 immunotherapy 4) GI: Diarrhea - Resolving - C.diff negative 5) F/E/N: - Regular diet - Monitor electrolytes 6) Prophylaxis: - Heparin 5,000u sq bid - OOB ambulating - SCDs bilaterally 7) Dispo: - Requires continued inpatient care CODE STATUS: FULL CODE Visit type - Emergency Visit Emergency Visit: Yes ED Registration Date: 11/12/16 Care time: The patient presented to the Emergency Department on the above date and was hospitalized for further evaluation of their emergent condition. - New Patient This patient is new to me today: No - Critical Care Critical Care patient: No
--- NOTE | 2016-11-16 15:25 | PN ---
Progress Note, Physician History of Present Illness: feeling much better still coughing but cough better still feeling weak - Current Medication List Current Medications: Active Medications Acetaminophen (Tylenol -) 650 mg PO Q4H PRN PRN Reason: FEVER OR PAIN Last Admin: 11/16/16 00:10 Dose: 650 mg Allopurinol (Zyloprim -) 100 mg PO DAILY [facility] Last Admin: 11/16/16 09:43 Dose: 100 mg Calcium Carbonate (Os-Jalen 500mg -) 500 mg PO BID [facility] Last Admin: 11/16/16 09:43 Dose: 500 mg Guaifenesin (Robitussin -) 10 ml PO Q6H PRN PRN Reason: COUGH Last Admin: 11/16/16 13:06 Dose: 10 ml Heparin Sodium (Porcine) (Heparin -) 5,000 unit SQ TID [facility] Last Admin: 11/16/16 14:45 Dose: Not Given Azithromycin 250 mg/ Dextrose 250 mls @ 250 mls/hr IVPB DAILY [facility] Last Admin: 11/16/16 13:07 Dose: 250 mls/hr Meropenem 1 gm/ Dextrose 250 mls @ 250 mls/hr IVPB BID [facility] Last Admin: 11/16/16 09:50 Dose: 250 mls/hr Clindamycin Phosphate (Cleocin 300 Mg Premix Ivpb) 50 mls @ 100 mls/hr IVPB Q8H [facility] Last Admin: 11/16/16 06:10 Dose: 100 mls/hr Mycophenolate Mofetil (Cellcept -) 500 mg PO HS [facility] Last Admin: 11/15/16 21:22 Dose: 500 mg Mycophenolate Mofetil (Cellcept -) 1,000 mg PO DAILY [facility] Last Admin: 11/16/16 09:51 Dose: 1,000 mg Non-Formulary Medication (Tacrolimus [Tacrolimus]) 2 mg PO HS [facility] Last Admin: 11/15/16 21:23 Dose: 2 mg Non-Formulary Medication (Tacrolimus [Tacrolimus]) 1 mg PO DAILY [facility] Last Admin: 11/16/16 09:46 Dose: 1 mg Ondansetron HCl (Zofran Injection) 4 mg IVPB Q6H PRN PRN Reason: NAUSEA Pravastatin Sodium (Pravachol) 40 mg PO HS [facility] Last Admin: 11/15/16 21:22 Dose: 40 mg Prednisone (Deltasone -) 5 mg PO DAILY [facility] Last Admin: 11/16/16 09:43 Dose: 5 mg - Objective Vital Signs: Vital Signs Temperature 97.3 F L 11/16/16 06:00 Pulse Rate 73 11/16/16 06:00 Respiratory Rate 18 11/16/16 06:00 Blood Pressure 144/87 11/16/16 06:00 O2 Sat by Pulse Oximetry (%) 93 L 11/15/16 21:00 Constitutional: Yes: No Distress, Calm Cardiovascular: Yes: Regular Rate and Rhythm Respiratory: Yes: Regular, CTA Bilaterally Gastrointestinal: Yes: Normal Bowel Sounds, Soft Musculoskeletal: Yes: WNL Extremities: Yes: WNL Neurological: Yes: Alert, Oriented Psychiatric: Yes: Alert Labs: CBC, BMP 11/16/16 06:00 11/16/16 06:00 Assessment/Plan 61 year-old woman with a PMH of Gregoria's granulomatosis s/p renal transplant x 2 (1989, 2005 at [place]). Admitted for JAMILA and pneumonia. Acute kidney injury Azotemia Lactic acidosis Renal transplant recipient Pneumonia Thrombocytopenia Diarrhea Gregoria's granulomatosis d coverage as anything on her cannot be missed because of her status plan conitnue abx all cx report noted continue iv abx for morning and afternoon dose will transition to oral in the afternoon should be able to go home by evening
--- NOTE | 2016-11-16 17:33 | PN ---
Progress Note, Physician History of Present Illness: Pt seen and examined at bedside. She still has a cough. She denies diarrhea. - Current Medication List Current Medications: Active Medications Acetaminophen (Tylenol -) 650 mg PO Q4H PRN PRN Reason: FEVER OR PAIN Last Admin: 11/16/16 00:10 Dose: 650 mg Allopurinol (Zyloprim -) 100 mg PO DAILY [facility] Last Admin: 11/16/16 09:43 Dose: 100 mg Calcium Carbonate (Os-Jalen 500mg -) 500 mg PO BID [facility] Last Admin: 11/16/16 09:43 Dose: 500 mg Guaifenesin (Robitussin -) 10 ml PO Q6H PRN PRN Reason: COUGH Last Admin: 11/16/16 13:06 Dose: 10 ml Heparin Sodium (Porcine) (Heparin -) 5,000 unit SQ TID [facility] Last Admin: 11/16/16 14:45 Dose: Not Given Azithromycin 250 mg/ Dextrose 250 mls @ 250 mls/hr IVPB DAILY [facility] Last Admin: 11/16/16 13:07 Dose: 250 mls/hr Meropenem 1 gm/ Dextrose 250 mls @ 250 mls/hr IVPB BID [facility] Last Admin: 11/16/16 09:50 Dose: 250 mls/hr Clindamycin Phosphate (Cleocin 300 Mg Premix Ivpb) 50 mls @ 100 mls/hr IVPB Q8H [facility] Last Admin: 11/16/16 15:29 Dose: 100 mls/hr Mycophenolate Mofetil (Cellcept -) 500 mg PO HS [facility] Last Admin: 11/15/16 21:22 Dose: 500 mg Mycophenolate Mofetil (Cellcept -) 1,000 mg PO DAILY [facility] Last Admin: 11/16/16 09:51 Dose: 1,000 mg Non-Formulary Medication (Tacrolimus [Tacrolimus]) 2 mg PO HS [facility] Last Admin: 11/15/16 21:23 Dose: 2 mg Non-Formulary Medication (Tacrolimus [Tacrolimus]) 1 mg PO DAILY [facility] Last Admin: 11/16/16 09:46 Dose: 1 mg Ondansetron HCl (Zofran Injection) 4 mg IVPB Q6H PRN PRN Reason: NAUSEA Pravastatin Sodium (Pravachol) 40 mg PO HS [facility] Last Admin: 11/15/16 21:22 Dose: 40 mg Prednisone (Deltasone -) 5 mg PO DAILY [facility] Last Admin: 11/16/16 09:43 Dose: 5 mg - Objective Vital Signs: Vital Signs Temperature 98.1 F 11/16/16 14:51 Pulse Rate 87 11/16/16 14:51 Respiratory Rate 22 11/16/16 14:51 Blood Pressure 131/77 11/16/16 14:51 O2 Sat by Pulse Oximetry (%) 92 L 11/16/16 09:00 Constitutional: Yes: Calm Eyes: Yes: Conjunctiva Clear HENT: Yes: Atraumatic Neck: Yes: Supple Cardiovascular: Yes: S1, S2 Respiratory: Yes: Other (left lower lobe mild rhonchi) Genitourinary: Yes: WNL, Other (graft soft and non tender) Musculoskeletal: Yes: WNL Edema: No Neurological: Yes: Oriented Psychiatric: Yes: Oriented Labs: CBC, BMP 11/16/16 06:00 11/16/16 06:00 Problem List - Problems (1) JAMILA (acute kidney injury) Code(s): N17.9 - ACUTE KIDNEY FAILURE, UNSPECIFIED (2) Dehydration Code(s): E86.0 - DEHYDRATION (3) Diarrhea Code(s): R19.7 - DIARRHEA, UNSPECIFIED (4) Hypomagnesemia Code(s): E83.42 - HYPOMAGNESEMIA (5) Pneumonia Code(s): J18.9 - PNEUMONIA, UNSPECIFIED ORGANISM Qualifiers: Pneumonia type: due to unspecified organism Laterality: left Lung location: lower lobe of lung Qualified Code(s): J18.9 - Pneumonia, unspecified organism (6) Renal transplant recipient Code(s): Z94.0 - KIDNEY TRANSPLANT STATUS (7) Gregoria's granulomatosis with renal involvement Code(s): M31.31 - GREGORIA'S GRANULOMATOSIS WITH RENAL INVOLVEMENT (8) Sepsis Code(s): A41.9 - SEPSIS, UNSPECIFIED ORGANISM Assessment/Plan Current Medications Generic Name Dose Route Start Last Admin Trade Name Freq PRN Reason Stop Dose Admin Acetaminophen 650 mg 11/12/16 12:21 11/16/16 00:10 Tylenol - PO 650 mg Q4H PRN Administration FEVER OR PAIN Allopurinol 100 mg 11/13/16 10:00 11/16/16 09:43 Zyloprim - PO 100 mg DAILY ADRIANNA Administration Calcium Carbonate 500 mg 11/12/16 22:00 11/16/16 09:43 Os-Jalen 500mg - PO 500 mg BID ADRIANNA Administration Guaifenesin 10 ml 11/16/16 02:05 11/16/16 13:06 Robitussin - PO 10 ml Q6H PRN Administration COUGH Heparin Sodium (Porcine) 5,000 unit 11/12/16 14:00 11/16/16 14:45 Heparin - SQ Not Given TID ADRIANNA Azithromycin 250 mg/ Dextrose 250 mls @ 250 mls/hr 11/13/16 10:00 11/16/16 13: 07 IVPB 250 mls/hr DAILY ADRIANNA Administration Meropenem 1 gm/ Dextrose 250 mls @ 250 mls/hr 11/13/16 18:00 11/16/16 09:50 IVPB 250 mls/hr BID ADRIANNA Administration Clindamycin Phosphate 50 mls @ 100 mls/hr 11/14/16 06:00 11/16/16 15:29 Cleocin 300 Mg Premix Ivpb IVPB 100 mls/hr Q8H ADRIANNA Administration Mycophenolate Mofetil 500 mg 11/12/16 22:00 11/15/16 21:22 Cellcept - PO 500 mg HS ADRIANNA Administration Mycophenolate Mofetil 1,000 mg 11/13/16 10:00 11/16/16 09:51 Cellcept - PO 1,000 mg DAILY ADRIANNA Administration Non-Formulary Medication 2 mg 11/12/16 22:00 11/15/16 21:23 Tacrolimus [Tacrolimus] PO 2 mg HS ADRIANNA Administration Non-Formulary Medication 1 mg 11/13/16 10:00 11/16/16 09:46 Tacrolimus [Tacrolimus] PO 1 mg DAILY ADRIANNA Administration Ondansetron HCl 4 mg 11/12/16 12:21 Zofran Injection IVPB Q6H PRN NAUSEA Pravastatin Sodium 40 mg 11/12/16 22:00 11/15/16 21:22 Pravachol PO 40 mg HS ADRIANNA Administration Prednisone 5 mg 11/13/16 10:00 11/16/16 09:43 Deltasone - PO 5 mg DAILY ADRIANNA Administration Laboratory Tests 11/13/16 07:00 Tacrolimus Pending Impression 1. CKD 2. s/p kidney transplant x2 3. hx of vasculitis 4. PNA 5. diarrhea/vomiting 6. sepsis 7. gout 8. hyperlipidemia Plan - ID input appreciated - prograf level pending, pt will go have level checked as outpt - renal function is stable - will give incentive spirometer - pt has been stable off of fluids - will follow Dr Negrete
[2016-11-16] MEDS: TACROLIMUS 2 MG PO SCH (22:50)
[2016-11-16] MEDS: PRAVASTATIN NA 40 MG TABLET PO SCH (22:51)
[2016-11-17] MEDS ORDERED: PT OWN MED DRAWER 7, Y5N ONE ×6 (06:08→17:56)
[2016-11-17] MEDS: CLINDAMYCIN 300 MG PREMIX IVPB 50 ML IVPB SCH ×2 (06:44→15:20)
[2016-11-17] MEDS: guaiFENesin 200 MG/10 ML 10 ML UNIT-DOSE CUPS PO PRN (06:44)
[2016-11-17] MEDS: HEPARIN NA (PORCINE) 5,000 UNITS/ML 1ML VIAL SQ SCH ×2 (07:14→15:21)
[2016-11-17 07:46] LABS: CALCIUM 8.9 mg/dL (8.5-10.1)
[2016-11-17] MEDS: MEROPENEM 1 GM in DEXTROSE 5%-WATER - 250 ML IVPB SCH (09:11)
[2016-11-17] MEDS: MYCOPHENOLATE MOFETIL 500 MG TABLET PO SCH (09:12)
[2016-11-17] MEDS: TACROLIMUS 1 MG PO SCH (09:13)
[2016-11-17] MEDS: predniSONE 5 MG TABLET (UD) PO SCH (09:20)
[2016-11-17] MEDS: ALLOPURINOL 100 MG TABLET (FP) PO SCH (09:20)
[2016-11-17] MEDS: CALCIUM (OYSTER SHELL) 500 MG TABLET (FP) PO SCH (09:20)
--- NOTE | 2016-11-17 11:57 | DS ---
[id number] Rate 20 11/17/16 06:00 Blood Pressure 112/79 11/17/16 06:00 O2 Sat by Pulse Oximetry (%) 94 L 11/17/16 09:00 Findings/Remarks: Physical Exam: General: NAD, A&Ox3 Lungs: CTA bilaterally Heart: RRR, S1S2 Abd: Soft, non-tender, non-distended. Normoactive bowel sounds Ext: Warm, well-perfused 2+ DP/PT bilaterally Neuro: CN 2-12 intact Labs: CBC, BMP 11/16/16 06:00 11/17/16 06:00 Discharge Summary Reason For Visit: ACUTE KIDNEY INJURY,PNEUMONIA,DEHYDRATION Current Active Problems JAMILA (acute kidney injury) (Acute) DVT prophylaxis (Acute) Dehydration (Acute) Diarrhea (Acute) Hypomagnesemia (Acute) Pneumonia (Acute) Renal transplant recipient (Acute) Sepsis (Acute) Gregoria's granulomatosis with renal involvement (Acute) Hospital Course: This is a 61 year old female with PMHx of Gregoria's granulomatosis s/p renal transplant 1989 and 2005 who presented to the ED with cough and productive sputum and black diarrhea with vomiting. Plan: 1) ID: Severe sepsis 2/2 pneumonia - Chest X-ray with left lower lobe pneumonia with reactive left pleural effusion - Lactic acidosis resolved - WBC wnl - Afebrile - Continue Meropenem and Azithromycin until per ID given the patient is immunocompromised - All cultures noted - Appreciate ID consult 2) : JAMILA - Baseline Cr 1.3-1.4: on admission was 2.7 - Cr now 1.0 Renal transplant recipient - S/p renal transplant 1989, 2005 - [place] with functional left renal transplant, no normal functioning right kidney - Continue Tacrolimus - Continue Prednisone - Continue Cellcept 3) Heme: Thrombocytopenia - Improving - Likely 2/2 immunotherapy 4) GI: Diarrhea - Resolving - C.diff negative Discussed with patient who will need follow-up Chest x-ray in one week. Please follow-up with your transplant team in 2-3 days Condition: Improved - Instructions Diet, Activity, Other Instructions: Please return to the ED with new, persistent, or worsening symptoms. Please follow-up with providers as indicated. Please follow-up with your transplant team within one week. Please follow-up with you pcp to have a repeat chest x-ray as an outpatient within 2-3 days. Take all antibiotics as instructed. Referrals: STAFF,NOT ON [Primary Care Provider] - Disposition: HOME - Home Medications Comprehensive Discharge Medication List: Ambulatory Orders Allopurinol [Zyloprim -] 100 mg PO DAILY 11/12/16 Calcium Carbonate [Calcium] 500 mg PO BID 11/12/16 Mycophenolate Mofetil [Cellcept Suspension -] 100 mg PO HS 11/12/16 Mycophenolate Mofetil [Cellcept] 200 mg PO DAILY 11/12/16 Pravastatin Sodium [Pravachol (Nf)] 40 mg PO HS 11/12/16 Prednisone 5 mg PO DAILY 11/12/16 Tacrolimus 1 mg PO DAILY 11/12/16 Tacrolimus 2 mg PO HS 11/12/16 This patient is new to me today: No Emergency Visit: Yes ED Registration Date: 11/12/16 Care time: The patient presented to the Emergency Department on the above date and was hospitalized for further evaluation of their emergent condition. Critical Care patient: No - Discharge Referral Referred to [facility] No
--- NOTE | 2016-11-17 12:01 | PN ---
Progress Note, Physician History of Present Illness: Pt seen and examined at bedside. She is awake and alert. She feels better today. She denies fevers or chills.c - Current Medication List Current Medications: Active Medications Acetaminophen (Tylenol -) 650 mg PO Q4H PRN PRN Reason: FEVER OR PAIN Last Admin: 11/16/16 22:51 Dose: 650 mg Allopurinol (Zyloprim -) 100 mg PO DAILY [facility] Last Admin: 11/17/16 09:20 Dose: 100 mg Calcium Carbonate (Os-Jalen 500mg -) 500 mg PO BID [facility] Last Admin: 11/17/16 09:20 Dose: 500 mg Guaifenesin (Robitussin -) 10 ml PO Q6H PRN PRN Reason: COUGH Last Admin: 11/17/16 06:44 Dose: 10 ml Heparin Sodium (Porcine) (Heparin -) 5,000 unit SQ TID [facility] Last Admin: 11/17/16 07:14 Dose: Not Given Meropenem 1 gm/ Dextrose 250 mls @ 250 mls/hr IVPB BID [facility] Last Admin: 11/17/16 09:11 Dose: 250 mls/hr Clindamycin Phosphate (Cleocin 300 Mg Premix Ivpb) 50 mls @ 100 mls/hr IVPB Q8H [facility] Last Admin: 11/17/16 06:44 Dose: 100 mls/hr Mycophenolate Mofetil (Cellcept -) 500 mg PO HS [facility] Last Admin: 11/16/16 22:47 Dose: 500 mg Mycophenolate Mofetil (Cellcept -) 1,000 mg PO DAILY [facility] Last Admin: 11/17/16 09:12 Dose: 1,000 mg Non-Formulary Medication (Tacrolimus [Tacrolimus]) 2 mg PO HS [facility] Last Admin: 11/16/16 22:50 Dose: 2 mg Non-Formulary Medication (Tacrolimus [Tacrolimus]) 1 mg PO DAILY [facility] Last Admin: 11/17/16 09:13 Dose: 1 mg Ondansetron HCl (Zofran Injection) 4 mg IVPB Q6H PRN PRN Reason: NAUSEA Pravastatin Sodium (Pravachol) 40 mg PO HS [facility] Last Admin: 11/16/16 22:51 Dose: 40 mg Prednisone (Deltasone -) 5 mg PO DAILY [facility] Last Admin: 11/17/16 09:20 Dose: 5 mg - Objective Vital Signs: Vital Signs Temperature 97.7 F 11/17/16 06:00 Pulse Rate 86 11/17/16 06:00 Respiratory Rate 20 11/17/16 06:00 Blood Pressure 112/79 11/17/16 06:00 O2 Sat by Pulse Oximetry (%) 94 L 11/17/16 09:00 Constitutional: Yes: Calm Eyes: Yes: Conjunctiva Clear HENT: Yes: Atraumatic Cardiovascular: Yes: S1, S2 Respiratory: Yes: CTA Bilaterally Gastrointestinal: Yes: Soft Genitourinary: Yes: WNL, Other (graft soft and non tender) Musculoskeletal: Yes: WNL Extremities: Yes: WNL Edema: No Integumentary: Yes: WNL Neurological: Yes: Oriented Psychiatric: Yes: Oriented Labs: CBC, BMP 11/16/16 06:00 11/17/16 06:00 Problem List - Problems (1) JAMILA (acute kidney injury) Code(s): N17.9 - ACUTE KIDNEY FAILURE, UNSPECIFIED (2) Dehydration Code(s): E86.0 - DEHYDRATION (3) Diarrhea Code(s): R19.7 - DIARRHEA, UNSPECIFIED (4) Hypomagnesemia Code(s): E83.42 - HYPOMAGNESEMIA (5) Pneumonia Code(s): J18.9 - PNEUMONIA, UNSPECIFIED ORGANISM Qualifiers: Pneumonia type: due to unspecified organism Laterality: left Lung location: lower lobe of lung Qualified Code(s): J18.9 - Pneumonia, unspecified organism (6) Renal transplant recipient Code(s): Z94.0 - KIDNEY TRANSPLANT STATUS (7) Gregoria's granulomatosis with renal involvement Code(s): M31.31 - GREGORIA'S GRANULOMATOSIS WITH RENAL INVOLVEMENT (8) Sepsis Code(s): A41.9 - SEPSIS, UNSPECIFIED ORGANISM Assessment/Plan Current Medications Generic Name Dose Route Start Last Admin Trade Name Freq PRN Reason Stop Dose Admin Acetaminophen 650 mg 11/12/16 12:21 11/16/16 22:51 Tylenol - PO 650 mg Q4H PRN Administration FEVER OR PAIN Allopurinol 100 mg 11/13/16 10:00 11/17/16 09:20 Zyloprim - PO 100 mg DAILY [facility] Administration Calcium Carbonate 500 mg 11/12/16 22:00 11/17/16 09:20 Os-Jalen 500mg - PO 500 mg BID [facility] Administration Guaifenesin 10 ml 11/16/16 02:05 11/17/16 06:44 Robitussin - PO 10 ml Q6H PRN Administration COUGH Heparin Sodium (Porcine) 5,000 unit 11/12/16 14:00 11/17/16 07:14 Heparin - SQ Not Given TID [facility] Meropenem 1 gm/ Dextrose 250 mls @ 250 mls/hr 11/13/16 18:00 11/17/16 09:11 IVPB 250 mls/hr BID [facility] Administration Clindamycin Phosphate 50 mls @ 100 mls/hr 11/14/16 06:00 11/17/16 06:44 Cleocin 300 Mg Premix Ivpb IVPB 100 mls/hr Q8H [facility] Administration Mycophenolate Mofetil 500 mg 11/12/16 22:00 11/16/16 22:47 Cellcept - PO 500 mg HS [facility] Administration Mycophenolate Mofetil 1,000 mg 11/13/16 10:00 11/17/16 09:12 Cellcept - PO 1,000 mg DAILY [facility] Administration Non-Formulary Medication 2 mg 11/12/16 22:00 11/16/16 22:50 Tacrolimus [Tacrolimus] PO 2 mg HS [facility] Administration Non-Formulary Medication 1 mg 11/13/16 10:00 11/17/16 09:13 Tacrolimus [Tacrolimus] PO 1 mg DAILY [facility] Administration Ondansetron HCl 4 mg 11/12/16 12:21 Zofran Injection IVPB Q6H PRN NAUSEA Pravastatin Sodium 40 mg 11/12/16 22:00 11/16/16 22:51 Pravachol PO 40 mg HS [facility] Administration Prednisone 5 mg 11/13/16 10:00 11/17/16 09:20 Deltasone - PO 5 mg DAILY [facility] Administration Laboratory Tests 11/13/16 07:00 Tacrolimus 3.8 Impression 1. CKD 2. s/p kidney transplant x2 3. hx of vasculitis 4. PNA 5. diarrhea/vomiting 6. sepsis 7. gout 8. hyperlipidemia Plan - renal function is stable, creatinine is actually better than baseline - abx per ID - prograf level reviewed, pt will follow with transplant team next week. - will need follow up cxr as outpt, this was explained to pt - will follow Dr Negrete
--- NOTE | 2016-11-17 13:52 | EKG ---
Test Reason : Blood Pressure : / mmHG Vent. Rate : 105 BPM Atrial Rate : 105 BPM P-R Int : 168 ms QRS Dur : 094 ms QT Int : 334 ms P-R-T Axes : 041 008 052 degrees QTc Int : 441 ms SINUS TACHYCARDIA NONSPECIFIC ST AND T WAVE ABNORMALITY ABNORMAL ECG NO PREVIOUS ECGS AVAILABLE Confirmed by KENNETH QUINN MD ([id number]) on 11/17/2016 1:51:41 PM Referred By: Confirmed By:KENNETH QUINN MD
--- NOTE | 2016-11-17 15:46 | PN ---
Progress Note, Physician History of Present Illness: patient stable still coughing,but improved a lot - Current Medication List Current Medications: Active Medications Acetaminophen (Tylenol -) 650 mg PO Q4H PRN PRN Reason: FEVER OR PAIN Last Admin: 11/16/16 22:51 Dose: 650 mg Allopurinol (Zyloprim -) 100 mg PO DAILY [facility] Last Admin: 11/17/16 09:20 Dose: 100 mg Calcium Carbonate (Os-Jalen 500mg -) 500 mg PO BID [facility] Last Admin: 11/17/16 09:20 Dose: 500 mg Guaifenesin (Robitussin -) 10 ml PO Q6H PRN PRN Reason: COUGH Last Admin: 11/17/16 06:44 Dose: 10 ml Heparin Sodium (Porcine) (Heparin -) 5,000 unit SQ TID [facility] Last Admin: 11/17/16 15:21 Dose: Not Given Clindamycin Phosphate (Cleocin 300 Mg Premix Ivpb) 50 mls @ 100 mls/hr IVPB Q8H [facility] Last Admin: 11/17/16 15:20 Dose: 100 mls/hr Meropenem 1 gm/ Dextrose 250 mls @ 250 mls/hr IVPB BID [facility] Stop: 11/17/16 18:59 Mycophenolate Mofetil (Cellcept -) 500 mg PO HS [facility] Last Admin: 11/16/16 22:47 Dose: 500 mg Mycophenolate Mofetil (Cellcept -) 1,000 mg PO DAILY [facility] Last Admin: 11/17/16 09:12 Dose: 1,000 mg Non-Formulary Medication (Tacrolimus [Tacrolimus]) 2 mg PO HS [facility] Last Admin: 11/16/16 22:50 Dose: 2 mg Non-Formulary Medication (Tacrolimus [Tacrolimus]) 1 mg PO DAILY [facility] Last Admin: 11/17/16 09:13 Dose: 1 mg Ondansetron HCl (Zofran Injection) 4 mg IVPB Q6H PRN PRN Reason: NAUSEA Pravastatin Sodium (Pravachol) 40 mg PO HS [facility] Last Admin: 11/16/16 22:51 Dose: 40 mg Prednisone (Deltasone -) 5 mg PO DAILY [facility] Last Admin: 11/17/16 09:20 Dose: 5 mg - Objective Vital Signs: Vital Signs Temperature 97.7 F 11/17/16 06:00 Pulse Rate 80 11/17/16 10:00 Respiratory Rate 20 11/17/16 10:00 Blood Pressure 90/50 11/17/16 10:00 O2 Sat by Pulse Oximetry (%) 94 L 11/17/16 09:00 Constitutional: Yes: No Distress, Calm Cardiovascular: Yes: Regular Rate and Rhythm Respiratory: Yes: Regular, Poor Air Entry (lower bases) Gastrointestinal: Yes: Normal Bowel Sounds, Soft Musculoskeletal: Yes: WNL Extremities: Yes: WNL Neurological: Yes: Alert, Oriented Psychiatric: Yes: Alert, Oriented Labs: CBC, BMP 11/16/16 06:00 11/17/16 06:00 Assessment/Plan 61 year-old woman with a PMH of Gregoria's granulomatosis s/p renal transplant x 2 (1989, 2005 at [facility]). Admitted for JAMILA and pneumonia. Acute kidney injury Azotemia Lactic acidosis Renal transplant recipient Pneumonia Thrombocytopenia Diarrhea Gregoria's granulomatosis d coverage as anything on her cannot be missed because of her status plan patient too get total of 2 weeks of abx augmentin 500mg bid for another 8 days clinda 300mg 3 times aday for another 8 days incentive alma to be done at home if patient spikes fever or feels unwell to come back to the er patient wants to go home
[2016-11-17] MEDS ORDERED: MEROPENEM 1 GM in DEXTROSE 5%-WATER - 250 ML IVPB SCH (18:00)
[2016-11-17 19:50] VITALS: BP 136/79; PULSE 92; TEMP 98
== END 2016-11-17 20:19 | disposition home or self-care (01) | DRG 871 ==
LOC: JER 08:50 → JERBED 10:51 → J5S 12:40
PROVIDERS: ADMIT Internal Medicine; ATTEND Registered Nurse
DX: A41.9 Sepsis, unspecified organism (principal); J18.9 Pneumonia, unspecified organism; Z94.0 Kidney transplant status; N17.9 Acute kidney failure, unspecified; M31.31 Wegener's granulomatosis with renal involvement; E86.0 Dehydration; I95.1 Orthostatic hypotension; R09.02 Hypoxemia; R19.7 Diarrhea, unspecified; E83.42 Hypomagnesemia; R11.2 Nausea with vomiting, unspecified; E78.5 Hyperlipidemia, unspecified; D69.6 Thrombocytopenia, unspecified
CPT/HCPCS: 36415; 71010-TC; 76776-TC; 80048; 80053; 80197; 81003; 81015; 82272; 82436; 82570; 83605; 83735; 84133; 84300; 85025; 85027; 86140; 86644; 86645; 87040; 87045; 87046; 87070; 87086; 87177; 87205; 87207; 87209; 87254; 87324; 87328; 87329; 87449; 87496; 87804; 87899; 93005; 93010; 94010; 94667; 97116-GP; 97161-GP; 99285-25; J1644; J7517